=== PATIENT | male | born 1950 | race Caucasian/White ===

== ENCOUNTER 2021-10-06 08:53 | Outpatient (REF) | payer MEDICARE, SELFPAY ==
[2021-10-06 09:26] LABS: MANUAL DIFF FLAG NO
[2021-10-06 10:07] LABS: Basophils Percent Auto 0.6 % (0-2); Eosinophils Absolute Auto 0.4 X10*3/uL (0.0-0.4); Eosinophils Percent Auto 6.1 % (0-4); Hematocrit 46.6 % (42.0-52.0); Hemoglobin 15.9 g/dl (14.0-18.0); Imm Gran Abs Auto 0.03 X10*3/uL (0.00-0.03); Imm Gran Pct Auto 0.4 % (0.0-0.4); Lymphocytes Absolute Auto 1.5 X10*3/uL (1.2-4.9); Lymphocytes Percent Auto 22.7 % (20-40); Mean Corpuscular HGB Conc 34.1 g/dl (31.0-36.0); Mean Corpuscular Volume 99.8 fL (80.0-98.0); Mean Platelet Volume 9.2 fL (9.4-12.4); Monocytes Absolute Auto 0.6 X10*3/uL (0.1-1.2); Monocytes Percent Auto 8.8 % (2-11); Neutrophils Absolute Auto 4.1 x10*3/uL (2.0-8.3); Neutrophils Percent Auto 61.4 % (45-73); Platelet Count 243 X10*3/uL (160-400); Red Blood Count 4.67 X10*6/uL (4.60-5.80); Red Cell Distribution Width 13.2 % (11.0-16.0); White Blood Count 6.7 X10*3/uL (4.8-10.8)
[2021-10-06 11:10] LABS: Alanine Aminotransferase 20 U/L (0-40); Albumin Level 4.2 g/dL (3.5-5.0); Alkaline Phosphatase 72 U/L (39-117); Anion Gap 14 (12-20); Aspartate Amino Transferase 22 U/L (5-37); Blood Urea Nitrogen 9 mg/dL (9-16); Carbon Dioxide 25 mmol/L (22-29); Chloride 106 mmol/L (96-108); Cholesterol 184 mg/dL; Estimated Glomerular Filt Rate > 60; Glucose Random 109 mg/dL (60-115); HDL Cholesterol 40 mg/dL; LDL Cholesterol Calculated 107 mg/dl; Potassium 5.6 mmol/L (3.3-5.1); Sodium 139 mmol/L (135-145); Total Protein 7.3 g/dL (6.5-8.0); Triglycerides 188 mg/dL
[2021-10-06 11:14] LABS: Thyroid Stimulating Hormone 1.25 uIU/mL (0.32-4.0)
[2021-10-06 11:21] LABS: Vitamin B12 593 pg/mL (200-900)
[2021-10-06 11:46] LABS: Prostate Specific Antigen Scr 2.44 ng/mL (<0.05-4.0)
== END 2021-10-06 08:54 | disposition home or self-care (01) ==
LOC: HO.LAB 08:53
PROVIDERS: PCP Internal Medicine; Visit Provider Internal Medicine
DX: E78.00 Pure hypercholesterolemia, unspecified (principal); Z12.5 Encounter for screening for malignant neoplasm of prostate
CPT/HCPCS: 36415; 80053; 80061; 82607; 82746; 84153; 84439; 84443; 85025

== ENCOUNTER 2021-10-13 11:25 | Outpatient (REF) | payer MEDICARE, SELFPAY ==
[2021-10-13 12:49] LABS: Anion Gap 14 (12-20); Blood Urea Nitrogen 10 mg/dL (9-16); Calcium 9.7 mg/dL (8.4-10.2); Carbon Dioxide 24 mmol/L (22-29); Chloride 105 mmol/L (96-108); Estimated Glomerular Filt Rate > 60; Glucose Random 94 mg/dL (60-115); Potassium 4.4 mmol/L (3.3-5.1); Sodium 139 mmol/L (135-145)
== END 2021-10-13 11:26 | disposition home or self-care (01) ==
LOC: HO.LAB 11:25
PROVIDERS: PCP Internal Medicine; Visit Provider Internal Medicine
DX: E87.5 Hyperkalemia (principal)
CPT/HCPCS: 36415; 80048

== ENCOUNTER → 2021-12-08 13:22 | Outpatient (BNVA) | payer MEDICARE, SELFPAY | PROVIDERS: PCP Internal Medicine; Visit Provider Nurse Practitioner Family | DX: M47.816 Spondylosis without myelopathy or radiculopathy, lumbar region (principal); M96.1 Postlaminectomy syndrome, not elsewhere classified; M53.3 Sacrococcygeal disorders, not elsewhere classified; M48.00 Spinal stenosis, site unspecified | CPT/HCPCS: 99202 ==

== ENCOUNTER 2021-12-27 12:33 | Outpatient (REF) | payer MEDICARE, SELFPAY ==
--- NOTE | 2021-12-27 14:25 | MHC.AU.ATI ---
Adult Audiological Evaluation- Tinnitus Date of Visit: 12/27/21 Reason for Appointment: Patient has been experiencing bothersome, constant, high-pitched tinnitus for the last several years. He has noticed some hearing difficulty, but does not feel it is interfering with his daily communication. 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 History: No Medical History: Medical History: High Blood Pressure, Tobacco Use Otoscopy: Right Ear: Unremarkable Left Ear: Unremarkable Tympanometry: Tympanometry performed due to: To assess integrity of the middle ear system Right Ear: Normal Middle Ear System (Type A) Left Ear: Reduced Middle Ear Compliance (Type As) Hearing Evaluation: Transducer(s) Used: Insert Earphones Method: Conventional Audiometry Stimuli Used: Pure Tones Right Ear: Description of Hearing: Normal at 250-500 Hz, then steeply sloping to profound sensorineural hearing loss Left Ear: Description of Hearing: Normal at 250-500 Hz, then steeply sloping to profound sensorineural hearing loss Speech Recognition Threshold (SRT): Method Used: Recorded Lists Stimuli Used: Spondee Words Right Ear: 25 dBHL Left Ear: 25 dBHL Word Discrimination: Method: Recorded Lists Word Lists Used:: W-22 Right Ear: 84% at 70 dBHL Left Ear: 88% at 70 dBHL Most Comfortable Level (MCL): Right Ear: 70 dBHL Left Ear: 70 dBHL Tinnitus Assessment: Tinnitus Match- Pitch/Frequency: Around 6000 Hz Recommendations: Audiological re-evaluation in one year. Patient does not feel he is ready for hearing aids at this time. Discussed tinnitus management strategies, including use of masking sounds (noise machines, fans, TV, radio, etc). Cognitive Behavior Therapy (CBT) may also be beneficial. Diagnosis: Primary Diagnosis: H90.3 Bilateral Sensorineural Hearing Loss Secondary Diagnosis: H93.13 Tinnitus, Bilateral Signature: Provider: Tino Wilson, [facility] [place]
== END 2021-12-27 12:34 | disposition home or self-care (01) ==
LOC: HO.SH 12:33
PROVIDERS: Visit Provider Internal Medicine
DX: H90.3 Sensorineural hearing loss, bilateral (principal); H93.13 Tinnitus, bilateral
CPT/HCPCS: 92557; 92567

== ENCOUNTER → 2022-01-05 13:19 | Outpatient (BNVA) | payer MEDICARE, SELFPAY | PROVIDERS: PCP Internal Medicine; Visit Provider Nurse Practitioner Family | DX: M47.816 Spondylosis without myelopathy or radiculopathy, lumbar region (principal); M96.1 Postlaminectomy syndrome, not elsewhere classified; M53.3 Sacrococcygeal disorders, not elsewhere classified; M48.00 Spinal stenosis, site unspecified | CPT/HCPCS: 99212 ==

== ENCOUNTER 2023-04-14 15:13 | Outpatient (AMB) | payer MEDICARE, SELFPAY ==
[2023-04-14 15:26] VITALS: BP 165/100; PULSE 65; O2SAT 97; BMI 23.4
--- NOTE | 2023-04-14 15:26 | A.OFFPC_ITS ---
Vital Signs 04/14/23 15:26 Height 5 ft 10 in Weight 163 lb BMI 23.4 BP 165/100 H Blood Pressure Location Lt brachial Position Sitting Pulse 65 Pulse Source Pulse Oximeter Pulse Oximetry (%) 97 Oxygen Delivery Method Room Air Intake Visit Reasons: Follow up Hypertension Brazer Controlled Atmospheric Furnace: Not Required per policy Accompanied by: Self / Same As Patient Allergies No Known Allergies [No Known Allergies*] Allergy (Verified 04/14/23 15:26) Medication List - Last Reconciled 04/14/23 by Kenji Melvin MD hydrocodone-acetaminophen 5-300 mg 1 tab PO BID PRN lisinopril 30 mg PO DAILY 90 days rosuvastatin 20 mg PO DAILY 90 days sildenafil (Viagra) 50 mg PO DAILY PRN tizanidine 2 mg PO Q8H PRN 14 days Tobacco use date assessed: 07/11/22 Fall risk assessment: No Falls in past year Last assessed Fall Risk: 04/14/23 Dental Screening Dental Screen Date: 04/14/23 Did you have a dental visit in the last 12 months?: Yes Did you have a dental problem in the last 6 months where you did not have access to dental care?: No Was dental information given to patient?: Patient has dentist HPI Follow up Hypertension HPI Details 72-year-old male smoker with a history o f failed back syndrome on narcotic pain medication hypertension hypercholesterolemia impaired glucose tolerance coming in for follow-up. Last seen in August 2022 patient was advised blood work. Patient is due for colonoscopy [facility] Medical History Tobacco abuse Hypercholesterolemia Hypertension Surgical History History of tonsillectomy History of hemorrhoidectomy Spinal stenosis Social History Housing: House Alcohol intake: current Alcohol intake frequency: does not drink Patient Tobacco Use Status: Current everyday Tobacco user Tobacco use type: Cigarette Cigarettes Per Day: 4 e-Cigarette/Vaping Use: Never Used Second Hand Smoke Exposure: Yes service: No Current occupational status: retired Cognitive needs: Yes (cane) Hearing needs: No Vision needs: Yes Questionnaire PHQ-9 Over the last 2 weeks, how often have you been bothered by any of the following problems? 1. Little interest or pleasure in doing things: not at all 2. Feeling down, depressed, or hopeless: not at all 3. Trouble falling or staying asleep, or sleeping too much: not at all 4. Feeling tired or having little energy: not at all 5. Poor appetite or overeating: not at all 6. Feeling bad about yourself - or that you are a failure or have let yourself or your family down: not at all 7. Trouble concentrating on things, such as reading the newspaper or watching television: not at all 8. Moving or speaking so slowly that other people could have noticed. Or the opposite - being so fidgety or restless that you have been moving around a lot more than usual: not at all 9. Thoughts that you would be better off or of hurting yourself in some way: not at all Total score: 0 Depression Screening Interpretation: Negative Depression Screening Done: Yes Source: Developed by Drs. Ramakrishna Blanc, Ramona Pena, Arvind Saldana and colleagues, with an educational dali from [employer]. Thrive Questionnaire Date Thrive assessed: 07/11/22 AUDIT C Alcohol Use Questionnaire (AUDIT-C) 1. How often do you have a drink containing alcohol?: Never 3. How often do you have six or more drinks on one occasion?: Never Total Score: 0 CALLY-7 AMB Questionnaire CALLY-7 Date CALLY - 7 assessed: 07/11/22 Source: Developed by Drs. Ramakrishna Blanc, Ramona Pena, Arvind Saldana and colleagues, with an educational dali from [employer]. Physical exam (Primary Care) Vital Signs: Oxygen Delivery Method Room Air 04/14/23 15:26 BMI result Body Mass Index 23.4 Tobacco/Smoking Status: Tobacco use Status Tobacco use date assessed 07/11/22 09/20/22 11:47 Patient Tobacco Use Status Current everyday Tobacco 09/20/22 11:47 Tobacco use type Cigarette 09/20/22 11:47 e-Cigarette/Vaping Use Never Used 09/20/22 11:47 Depression Screening Interpretation: Negative Thrive Assessment: Date of Thrive Assessment Date Thrive assessed 07/11/22 09/20/22 11:47 Const General: alert; No acute distress Eyes Conjunctivae: conjunctivae normal Resp Auscultation: clear to auscultation bilaterally Cardio Rate: regular rate Rhythm: regular rhythm GI Inspection: Yes normal to inspection Extrem General: Yes normal to inspection and No edema Assessment and Plan Assessment & Plan (1) Colonoscopy refused: Code(s): Z53.20 - Procedure and treatment not carried out because of patient's decision for unspecified reasons (2) Failed back syndrome: Code(s): M96.1 - Postlaminectomy syndrome, not elsewhere classified Plan: Narcotic pain meds: Is being prescribed with the understanding that these medications are potentially addictive and should be used only when absolutely necessary and must always be secured. Any remaining pills should be safely disposed off appropriately. Patient is advised that narcotics can impaired judgment and one should not drive or operate heavy machinery while taking these medications. Never share these medications with anybody and do not leave them unattended. They will not be replaced under any circumstances. (3) Impaired fasting blood sugar: Code(s): R73.01 - Impaired fasting glucose Plan: Decrease the amount of carbohydrate intake, pasta, bread, rice and potatoes are all sugar and that is aside from all the sweet stuff, remember that fruits are good but they are Sweet also. (4) Hypertension: Comment: BP at home is good 08/2022 Code(s): I10 - Essential (primary) hypertension Plan: Avoid fried foods, chicken skin, eggs, butter margarine, pastries and meat. Patient is on lisinopril 30 mg once a day. PAtient is checking BP at home and BP has been good (5) Hypercholesterolemia: Code(s): E78.00 - Pure hypercholesterolemia, unspecified Plan: Avoid fried foods, chicken skin, eggs, butter margarine, pastries and meat. Be it pork or beef they have a lot of cholesterol patient on rosuvastatin 20 mg once a day LDL goal of less than 130 and triglyceride of less than 150. Reminded about blood work (6) Tobacco abuse: Comment: still smoking! (04/2023) Code(s): Z72.0 - Tobacco use Plan: advised to stop smoking! Coding Level of Care Code Est Pt Level 4 (11209) Diagnoses Colonoscopy refused Z53.20 Failed back syndrome M96.1 Impaired fasting blood sugar R73.01 Hypertension I10 Hypercholesterolemia E78.00 Tobacco abuse Z72.0
== END 2023-04-14 15:42 | disposition home or self-care (01) ==
PROVIDERS: PCP Internal Medicine; Visit Provider Internal Medicine
DX: Z53.20 Procedure and treatment not carried out because of patient's decision for unspecified reasons (principal); M96.1 Postlaminectomy syndrome, not elsewhere classified; R73.01 Impaired fasting glucose; I10 Essential (primary) hypertension; E78.00 Pure hypercholesterolemia, unspecified; Z72.0 Tobacco use
CPT/HCPCS: 99214

== ENCOUNTER 2023-06-16 10:14 | Outpatient (REF) | payer MEDICARE, SELFPAY ==
[2023-06-16 10:25] LABS: MANUAL DIFF FLAG NO
[2023-06-16 10:55] LABS: Basophils Percent Auto 0.7 % (0-2); Eosinophils Absolute Auto 0.3 X10*3/uL (0.0-0.4); Eosinophils Percent Auto 4.8 % (0-4); Hematocrit 48.6 % (42.0-52.0); Imm Gran Abs Auto 0.01 X10*3/uL (0.00-0.03); Imm Gran Pct Auto 0.2 % (0.0-0.4); Lymphocytes Absolute Auto 1.5 X10*3/uL (1.2-4.9); Lymphocytes Percent Auto 25.5 % (20-40); Mean Corpuscular Hemoglobin 34.6 pg (27.0-33.0); Mean Platelet Volume 8.9 fL (9.4-12.4); Monocytes Absolute Auto 0.5 X10*3/uL (0.1-1.2); Monocytes Percent Auto 8.6 % (2-11); Neutrophils Absolute Auto 3.5 x10*3/uL (2.0-8.3); Neutrophils Percent Auto 60.2 % (45-73); Platelet Count 181 X10*3/uL (160-400); Red Blood Count 4.91 X10*6/uL (4.60-5.80); Red Cell Distribution Width 12.9 % (11.0-16.0); White Blood Count 5.8 X10*3/uL (4.8-10.8)
[2023-06-16 11:30] LABS: Alanine Aminotransferase 25 U/L (0-40); Albumin Level 4.3 g/dL (3.5-5.0); Alkaline Phosphatase 88 U/L (39-117); Anion Gap 14 (12-20); Aspartate Amino Transferase 37 U/L (5-37); Bilirubin Total 1.4 mg/dL (0.0-1.0); Blood Urea Nitrogen 12 mg/dL (9-16); Calcium 9.7 mg/dL (8.4-10.2); Carbon Dioxide 29 mmol/L (22-29); Chloride 104 mmol/L (96-108); Cholesterol 184 mg/dL (<200); Estimated Glomerular Filt Rate > 60; Glucose Random 108 mg/dL (60-115); HDL Cholesterol 65 mg/dL (>40); LDL Cholesterol Calculated 92 mg/dL (<100); Potassium 5.1 mmol/L (3.3-5.1); Sodium 142 mmol/L (135-145); Total Protein 7.5 g/dL (6.5-8.0); Triglycerides 138 mg/dL (<150)
[2023-06-16 11:34] LABS: Free T4 (Free Thyroxine) 0.88 ng/dL (0.71-1.85); Thyroid Stimulating Hormone 1.61 uIU/mL (0.32-4.0)
[2023-06-16 11:44] LABS: Folate 6.2 ng/mL (> or = 4.0); Prostate Specific Antigen Scr 2.16 ng/mL (<0.05-4.0); Vitamin B12 348 pg/mL (200-900)
== END 2023-06-16 10:15 | disposition home or self-care (01) ==
LOC: HO.LAB 10:14
PROVIDERS: PCP Internal Medicine; Visit Provider Internal Medicine
DX: E78.00 Pure hypercholesterolemia, unspecified (principal); I10 Essential (primary) hypertension; Z12.5 Encounter for screening for malignant neoplasm of prostate
CPT/HCPCS: 36415; 80053; 80061; 82607; 82746; 84153; 84439; 84443; 85025

== ENCOUNTER 2023-07-17 14:54 | Outpatient (AMB) | payer MEDICARE, SELFPAY ==
[2023-07-17 14:55] VITALS: BP 158/90; PULSE 83; O2SAT 97; BMI 24.8
--- NOTE | 2023-07-17 14:55 | MHC.PC.OV ---
Vital Signs 07/17/23 14:55 Height 5 ft 10 in Weight 173 lb 0.6 oz BMI 24.8 BP 158/90 H Blood Pressure Location Lt brachial Position Sitting Pulse 83 Pulse Source Pulse Oximeter Pulse Oximetry (%) 97 Oxygen Delivery Method Room Air Intake Visit Reasons: Failed back syndrome, Tobacco abuse Supervisor [employer] Required: No Allergies No Known Allergies [No Known Allergies*] Allergy (Verified 07/17/23 14:55) Medication List - Last Reconciled 07/17/23 by Kenji Melvin MD hydrocodone-acetaminophen 5-300 mg 1 tab PO BID PRN lisinopril 30 mg PO DAILY 90 days sildenafil (Viagra) 50 mg PO DAILY PRN Tobacco use date assessed: 07/17/23 Fall risk assessment: No Falls in past year Last assessed Fall Risk: 07/17/23 Dental Screening Dental Screen Date: 07/17/23 HPI Failed back syndrome, Tobacco abuse HPI Details 72-year-old male smoker with a history of failed back syndrome on narcotic pain medication coming in for refill. Has a history of impaired glucose tolerance hypertension hypercholesterolemia. Patient declined colonoscopy the last time [facility] Medical History Tobacco abuse Hypercholesterolemia Hypertension Surgical History History of tonsillectomy History of hemorrhoidectomy Spinal stenosis Social History Housing: House Alcohol intake: current Alcohol intake frequency: does not drink Patient Tobacco Use Status: Current everyday Tobacco user Tobacco use type: Cigarette Cigarettes Per Day: 4 e-Cigarette/Vaping Use: Never Used Second Hand Smoke Exposure: Yes service: No Current occupational status: retired Cognitive needs: Yes (cane) Hearing needs: No Vision needs: Yes Questionnaire PHQ-9 Over the last 2 weeks, how often have you been bothered by any of the following problems? 1. Little interest or pleasure in doing things: not at all 2. Feeling down, depressed, or hopeless: not at all 3. Trouble falling or staying asleep, or sleeping too much: not at all 4. Feeling tired or having little energy: not at all 5. Poor appetite or overeating: not at all 6. Feeling bad about yourself - or that you are a failure or have let yourself or your family down: not at all 7. Trouble concentrating on things, such as reading the newspaper or watching television: not at all 8. Moving or speaking so slowly that other people could have noticed. Or the opposite - being so fidgety or restless that you have been moving around a lot more than usual: not at all 9. Thoughts that you would be better off or of hurting yourself in some way: not at all Total score: 0 Depression Screening Interpretation: Negative Depression Screening Done: Yes Source: Developed by Drs. Ramakrishna Blanc, Ramona Pena, Arvind Saldana and colleagues, with an educational dali from [employer]. Thrive Questionnaire Date Thrive assessed: 07/17/23 AUDIT C Alcohol Use Questionnaire (AUDIT-C) 1. How often do you have a drink containing alcohol?: Never 3. How often do you have six or more drinks on one occasion?: Never Total Score: 0 CALLY-7 AMB Questionnaire CALLY-7 Date CALLY - 7 assessed: 07/17/23 Feeling nervous, anxious, or on edge: 0 = Not at all Not being able to stop or control worryin = Not at all Worrying too much about different things: 0 = Not at all Trouble relaxin = Not at all Being so restless that it is hard to sit still: 0 = Not at all Becoming easily annoyed or irritable: 0 = Not at all Feeling afraid as if something awful might happen: 0 = Not at all Total CALLY-7 score (0-4 normal; 5-9 mild; 10-14 moderate; 15-21 severe): 0 Source: Developed by Drs. Ramakrishna Blanc, Ramona Pena, Arvind Saldana and colleagues, with an educational dali from [employer]. Physical exam (Primary Care) Vital Signs: Last Vital Signs Pulse 83 07/17/23 14:55 BP 158/90 H 07/17/23 14:55 Pulse Ox 97 07/17/23 14:55 Oxygen Delivery Method Room Air 07/17/23 14:55 BMI result Body Mass Index 24.8 Tobacco/Smoking Status: Tobacco use Status Tobacco use date assessed 07/17/23 07/17/23 14:56 Patient Tobacco Use Status Current everyday Tobacco 07/17/23 14:56 Tobacco use type Cigarette 07/17/23 14:56 e-Cigarette/Vaping Use Never Used 07/17/23 14:56 PHQ-9: PHQ-9 Score PHQ-9: Total score 0 07/17/23 15:13 Depression Screening Interpretation: Negative Thrive Assessment: Date of Thrive Assessment Date Thrive assessed 07/17/23 07/17/23 14:56 Const General: alert; No acute distress Eyes Conjunctivae: conjunctivae normal Resp Auscultation: clear to auscultation bilaterally Cardio Rate: regular rate Rhythm: regular rhythm GI Inspection: Yes normal to inspection Extrem General: Yes normal to inspection and No edema Assessment and Plan Assessment & Plan (1) Colonoscopy refused: Code(s): Z53.20 - Procedure and treatment not carried out because of patient's decision for unspecified reasons Plan: declined (2) Failed back syndrome: Code(s): M96.1 - Postlaminectomy syndrome, not elsewhere classified Plan: Narcotic pain meds: Is being prescribed with the understanding that these medications are potentially addictive and should be used only when absolutely necessary and must always be secured. Any remaining pills should be safely disposed off appropriately. Patient is advised that narcotics can impaired judgment and one should not drive or operate heavy machinery while taking these medications. Never share these medications with anybody and do not leave them unattended. They will not be replaced under any circumstances. (3) Impaired fasting blood sugar: Code(s): R73.01 - Impaired fasting glucose Plan: Decrease the amount of carbohydrate intake, pasta, bread, rice and potatoes are all sugar and that is aside from all the sweet stuff, remember that fruits are good but they are Sweet also. (4) Hypertension: Comment: BP at home is good 08/2022 Code(s): I10 - Essential (primary) hypertension Plan: Continue with blood pressure medication. Decrease salt intake and exercise patient has had monitoring the blood pressure is good. Lisinopril 30 mg once a day BP at home 121/67,137/72, 139/72,105/64 (5) Hypercholesterolemia: Code(s): E78.00 - Pure hypercholesterolemia, unspecified Plan: Avoid fried foods, chicken skin, eggs, butter margarine, pastries and meat. Be it pork or beef they have a lot of cholesterol presently on rosuvastatin 20 mg once a day LDL goal of less than 130 (6) Tobacco abuse: Comment: still smoking! (04/2023) Code(s): Z72.0 - Tobacco use Plan: Patient is strongly advised to stop smoking!- stopped 6 weeks. Coding Level of Care Code Est Pt Level 4 (36529) Diagnoses Colonoscopy refused Z53.20 Failed back syndrome M96.1 Impaired fasting blood sugar R73.01 Hypertension I10 Hypercholesterolemia E78.00 Tobacco abuse Z72.0
== END 2023-07-17 15:49 | disposition home or self-care (01) ==
PROVIDERS: PCP Internal Medicine; Visit Provider Internal Medicine
DX: Z53.20 Procedure and treatment not carried out because of patient's decision for unspecified reasons (principal); M96.1 Postlaminectomy syndrome, not elsewhere classified; R73.01 Impaired fasting glucose; I10 Essential (primary) hypertension; E78.00 Pure hypercholesterolemia, unspecified; Z72.0 Tobacco use
CPT/HCPCS: 99214

== ENCOUNTER 2023-10-16 14:32 | Outpatient (AMB) | payer MEDICARE, SELFPAY ==
[2023-10-16 14:37] VITALS: BP 162/90; PULSE 82; O2SAT 97; BMI 25.0
--- NOTE | 2023-10-16 14:37 | A.OFFPC_ITS ---
Vital Signs 10/16/23 14:37 Height 5 ft 10 in Weight 174 lb BMI 25.0 BP 162/90 H Blood Pressure Location Lt brachial Position Sitting Pulse 82 Pulse Source Pulse Oximeter Pulse Oximetry (%) 97 Oxygen Delivery Method Room Air Intake Visit Reasons: IGT, Credit Assessment Analyst Required: No Allergies No Known Allergies [No Known Allergies*] Allergy (Verified 10/16/23 14:37) Tobacco use date assessed: 10/16/23 Fall risk assessment: No Falls in past year Last assessed Fall Risk: 10/16/23 Dental Screening Dental Screen Date: 07/17/23 HPI IGT, HPI Details 73-year-old male smoker with a history o f failed back syndrome on narcotic pain medication coming in for follow-up. Has impaired glucose tolerance hypertension hypercholesterolemia coming in for follow-up. Last seen in July 2023.PAtient checks the BP at home 135/85- good at home [facility] Medical History Tobacco abuse Hypercholesterolemia Hypertension Surgical History History of tonsillectomy History of hemorrhoidectomy Spinal stenosis Social History Housing: House Alcohol intake: current Alcohol intake frequency: does not drink Patient Tobacco Use Status: Current everyday Tobacco user Tobacco use type: Cigarette Cigarettes Per Day: 4 e-Cigarette/Vaping Use: Never Used Second Hand Smoke Exposure: Yes service: No Current occupational status: retired Cognitive needs: Yes (cane) Hearing needs: No Vision needs: Yes Questionnaire Thrive Questionnaire Date Thrive assessed: 10/16/23 I am a: Patient What is your living situation today?: I have a steady place to live Within the past 12 months, did the food you bought not last and you didn't have the money to get more?: Never true Within the past 12 months, did you worry whether your food would run out before you got money to buy more?: Never true Do you have trouble paying for medicines?: No Do you have trouble getting transportation to medical appointments?: No Do you have trouble paying your heating and electricity bill?: No Do you have trouble taking care of your child, family member or friend?: No Do you have trouble with day-to-day activities such as bathing, preparing meals, shopping, managing finances, etc.?: No Are you currently unemployed and looking for a job?: No Are you interested in more education?: No Please select the resources that you would like help with: None Currently or been in a relationship where the following occur: no concerns reported THRIVE Score: 0 AUDIT C Alcohol Use Questionnaire (AUDIT-C) 1. How often do you have a drink containing alcohol?: Never 3. How often do you have six or more drinks on one occasion?: Never Total Score: 0 CALLY-7 AMB Questionnaire CALLY-7 Date CALLY - 7 assessed: 07/17/23 Source: Developed by Drs. Ramakrishna Blanc, Ramona Pena, Arvind Saldana and colleagues, with an educational dali from [employer]. Physical exam (Primary Care) Vital Signs: Last Vital Signs Pulse 82 10/16/23 14:37 BP 162/90 H 10/16/23 14:37 Pulse Ox 97 10/16/23 14:37 Oxygen Delivery Method Room Air 10/16/23 14:37 BMI result Body Mass Index 25.0 Tobacco/Smoking Status: Tobacco use Status Tobacco use date assessed 10/16/23 10/16/23 14:38 Patient Tobacco Use Status Current everyday Tobacco 10/16/23 14:38 Tobacco use type Cigarette 10/16/23 14:38 e-Cigarette/Vaping Use Never Used 10/16/23 14:38 Thrive Assessment: Date of Thrive Assessment Date Thrive assessed 10/16/23 10/16/23 14:38 Currently or been in a relationship where the following occur: no concerns reported Const General: alert; No acute distress Eyes Conjunctivae: conjunctivae normal Resp Auscultation: clear to auscultation bilaterally Cardio Rate: regular rate Rhythm: regular rhythm GI Inspection: Yes normal to inspection Extrem General: Yes normal to inspection and No edema Immunizations tetanus-diphtheria toxoids-Td 2 Lf unit-2 Lf unit/0.5 mL IM suspension Performing Provider: Kenji Melvin MD [place] [facility] [place] Administered by: SHON Jansen on 10/16/23 15:18 Dose Route Admin Location Dispensed Lot Number Expiration Date NDC Clinical Account Manager 0.5 mL IM Left Deltoid 0.5 mL [id number] 08/12/24 [address]-5 [employer] VIS Given Date VIS Provided VIS Publication Date 10/16/23 Single Vaccine 21 Eligibility Eligibility Date Funding Source Not [facility] Eligible 10/16/23 State funds Assessment and Plan Assessment & Plan (1) Tobacco abuse: Comment: still smoking! (04/2023) Code(s): Z72.0 - Tobacco use Plan: Patient is strongly advised to stop smoking! (2) Failed back syndrome: Code(s): M96.1 - Postlaminectomy syndrome, not elsewhere classified Plan: Narcotic pain meds: Is being prescribed with the understanding that these m edications are potentially addictive and should be used only when absolutely necessary and must always be secured. Any remaining pills should be safely disposed off appropriately. Patient is advised that narcotics can impaired judgment and one should not drive or operate heavy machinery while taking these medications. Never share these medications with anybody and do not leave them unattended. They will not be replaced under any circumstances. (3) Hypertension: Comment: BP at home is good 08/2022 Code(s): I10 - Essential (primary) hypertension Plan: Continue with blood pressure medication. Decrease salt intake and exercise on lisinopril 30 mg once a (4) Hypercholesterolemia: Code(s): E78.00 - Pure hypercholesterolemia, unspecified Plan: Avoid fried foods, chicken skin, eggs, butter margarine, pastries and meat. Be it pork or beef they have a lot of cholesterol LDL goal of less than 130 and triglyceride of less than 150 June blood work is good Orders: Orders Td State Immunization Today Z23 - Encounter for immunization Medications: New tetanus-diphtheria toxoids-Td 0.5 mL IM ONCE 0.5 mL 0RF Z23 - Encounter for immunization Coding Level of Care Code Est Pt Level 4 (71985) Diagnoses Tobacco abuse Z72.0 Failed back syndrome M96.1 Hypertension I10 Hypercholesterolemia E78.00
== END 2023-10-16 15:25 | disposition home or self-care (01) ==
PROVIDERS: PCP Internal Medicine; Visit Provider Internal Medicine
DX: Z72.0 Tobacco use (principal); M96.1 Postlaminectomy syndrome, not elsewhere classified; I10 Essential (primary) hypertension; E78.00 Pure hypercholesterolemia, unspecified; Z23 Encounter for immunization
CPT/HCPCS: 90471; 90714; 99214

== ENCOUNTER 2024-01-01 13:10 | Emergency (ER) | payer MEDICARE, SELFPAY ==
--- NOTE | ~2024-01-01 | CT_ITS ---
EXAMINATION: CT PELVIS WITH CONTRAST CLINICAL INFORMATION: Peritoneal abscess COMPARISON: 11/22/2018 CT scan TECHNIQUE: Helical scanning was performed with submillimeter collimation through the pelvis with the use of oral contrast and during bolus intravenous injection of 85 mL of Omnipaque 350 intravenous contrast. Sagittal and coronal multiplanar 2-D reconstructions were obtained. This CT examination was performed using dose optimization techniques as appropriate, variously including the following: *Automated exposure control *Adjustment of mA and/or kV according to patient size (this includes techniques or standardized protocols for targeted exams where dose is matched to indication/reason for exam; i.e. extremities or head) *Use of iterative reconstruction technique DLP: 330 mGy-cm FINDINGS: PELVIS: Scattered colonic diverticulosis. No rectal wall thickening or perirectal inflammatory change Although decompressed there is concentric bladder wall thickening that I cannot exclude a component of chronic bladder outflow obstruction. Prostate and seminal vesicles are unremarkable. The main finding of note is abnormal soft tissue perineum just posterior to the scrotum. There is a low-attenuation fluid collection. No soft tissue measuring approximately 3.5 x 1.5 x 3.2 cm in size. There is surrounding perineal skin thickening. I do not appreciate any soft tissue gas with this. I do not appreciate any obvious extension to the anal sphincter. Small incidental scrotal hydrocele seen bilaterally. OSSEOUS STRUCTURES: Degenerative changes in the lower lumbar spine and hips. CT/CT pelvis w IV con IMPRESSION: Abnormal soft tissue in the perineum just posterior to the scrotum. There is a low-attenuation fluid collection measuring 3.5 x 1.5 x 3.2 cm in size consistent with a small superficial perineal abscess and associated overlying skin thickening. I do not appreciate any obvious extension to the anal sphincter.
[2024-01-01 13:31] VITALS: BP 175/89; PULSE 91; RESP 16; TEMP 37.4; O2SAT 99; BMI 25.1
--- NOTE | 2024-01-01 13:35 | ED.GENADULT ---
HPI - General Adult General Chief complaint: Skin/Abscess/Foreign Body Stated complaint: growth priviate area Time Seen by Provider: 01/01/24 19:43 Source: patient Mode of arrival: ambulatory Limitations: no limitations History of Present Illness ED Provider: jurgen PEREZ narrative: Patient's history of perineal abscess in the past nondiabetic noticed small swelling in the perineal area 4 days ago got worse in last 24 hours no fever no chills no scrotal swelling no difficulty in defecation Related Data Previous Rx's ?Medication ?Instructions ?Recorded lisinopril 30 mg tablet 30 mg PO DAILY 90 days #90 tabs 05/17/23 sildenafil 50 mg tablet (Viagra) 50 mg PO DAILY PRN sexual activity 09/13/23 #14 tabs hydrocodone 5 mg-acetaminophen 300 1 tab PO BID PRN pain #60 tabs 12/28/23 mg tablet amoxicillin 875 mg-potassium 1 tab PO BID #20 tabs 01/01/24 clavulanate 125 mg tablet doxycycline hyclate 100 mg tablet 100 mg PO BID #20 tabs 01/01/24 Allergies Allergy/AdvReac Type Severity Reaction Status Date / Time No Known Allergies Allergy Verified 01/01/24 13:35 [No Known Allergies*] Review of Systems Review of Systems: Yes all other systems are reviewed and are negative PMFSH Past Medical History Medical History Tobacco abuse Hypercholesterolemia Hypertension Surgical History History of tonsillectomy History of hemorrhoidectomy Spinal stenosis Social History Social History Housing: House Alcohol intake: current Alcohol intake frequency: does not drink Patient Tobacco Use Status: Current everyday Tobacco user Tobacco use type: Cigarette Cigarettes Per Day: 4 Smoked in Last 30 Days: No e-Cigarette/Vaping Use: Never Used Second Hand Smoke Exposure: Yes Use of substances other than those prescribed or required for medical reasons: No Advance Directives: Yes Advance Directives on File: Yes Advance Directives Date on File: 02/23/22 Do you have a plan to hurt others: No Plan service: No Current occupational status: retired Cognitive needs: Yes (cane) Hearing needs: No Vision needs: Yes Physical Exam ED Vital Signs: Vital Signs - 24 hr 01/01/24 13:31 01/01/24 17:25 01/01/24 20:25 Temperature 99.4 F 99.5 F 100.1 F Pulse Rate 91 87 89 Respiratory Rate 16 16 16 Blood Pressure 175/89 H 189/95 H 165/76 H Pulse Oximetry 99 97 98 Oxygen Delivery Method Room Air Room Air Room Air 01/01/24 22:51 01/01/24 22:58 Temperature 99.5 F 99.5 F Pulse Rate 85 85 Respiratory Rate 16 16 Blood Pressure 160/84 H 160/84 H Pulse Oximetry 97 97 Oxygen Delivery Method Room Air Room Air BMI result Body Mass Index 25.1 Appearance: Alert. Oriented X3. No acute distress. Eyes: No pallor or icterus ENT: Pharynx normal. Oral Mucosa moist Neck: Normal inspection. Neck supple. CVS: Normal heart rate and rhythm. Pulses normal. Respiratory: No respiratory distress. Equal air entry bilateral, no wheezing/rales/rhonchi Abdomen: Soft and nontender. Bowel sounds are present, Skin: Skin warm and dry. Normal skin color. Normal skin turgor. Extremities: No lower extremity edema. No calf tenderness perinium 4 x 4 cm abscess in Perineum fluctuant scrotum normal Neuro: Oriented X 3. No motor deficit. No sensory deficit.No cerebellar signs , cranial nerves II-XII intact Course Course Course Narrative: RME performed by Kathleen Marion PA-C. Patient is a 73 year old assigned male at presenting to the emergency department with a growth. Patient states he has a growth between his scrotum and buttock. Patient states that previously he has had it lanced and drained but today the urgent care is concerned it is infected. Detailed physical exam and review of systems are deferred to the on site soil evaluator. Labs ordered. Patient placed back in the waiting room pending room availability and results. Medications Administered Discontinued Medications Generic Name Dose Route Start Last Admin Trade Name Freq PRN Reason Stop Dose Admin Amoxicillin/Clavulanate Potassium 875 mg 01/01/24 22:48 01/01/24 22:55 Amoxicillin/Potassium Clav 875 Mg Tablet PO 01/01/24 22:49 875 mg ONCE ONE Administration Doxycycline Monohydrate 100 mg 01/01/24 22:48 01/01/24 22:55 Doxycycline Monohydrate 100 Mg Capsule PO 01/01/24 22:49 100 mg ONCE ONE Administration Iohexol 100 ml 01/01/24 20:02 01/01/24 20:02 Iohexol 350 Mg/Ml 100 Ml Infus..Btl IV 01/01/24 20:03 85 ml ONCE ONE Administration Lidocaine HCl 5 ml 01/01/24 21:35 01/01/24 22:36 Lidocaine Hcl 1 % Mpf 5 Ml Vial INFILTRATI 01/01/24 21:36 5 ml ONCE ONE Administration Procedures Abscess I/D Site: astrid-rectal (Perineum) Local Anesthetic: lidocaine 1% Amount of anesthesia used (mL): 5 Technique: incised with blade Amount of fluid expressed (mL): 5 Sent for culture/gram staining?: No Irrigation: No Packing used?: iodoform Medical Decision Making Medical Decision Making [facility] Narrative: Patient with perineal abscess no deeper extension I and D was done foul-smelling pus was drained and packing was done advised to follow-up PCP/surgeon Lab Data [facility] Lab Attestation statement: I reviewed the patient's lab results. 01/01/24 14:45 01/01/24 14:45 Labs: Lab Results 01/01/24 Range/Units 14:45 WBC 12.2 H (4.8-10.8) X10*3/uL RBC 4.40 L (4.60-5.80) X10*6/uL Hgb 16.2 (14.0-18.0) g/dl Hct 44.7 (42.0-52.0) % MCV 101.6 H (80.0-98.0) fL MCH 36.8 H (27.0-33.0) pg MCHC 36.2 H (31.0-36.0) g/dl RDW 13.8 (11.0-16.0) % Plt Count 169 (160-400) X10*3/uL MPV 9.0 L (9.4-12.4) fL Immature Gran % (Auto) 0.4 (0.0-0.4) % Neut % (Auto) 82.2 H (45-73) % Lymph % (Auto) 7.8 L (20-40) % [place] % (Auto) 8.9 (2-11) % Eos % (Auto) 0.2 (0-4) % Baso % (Auto) 0.5 (0-2) % Lymph # (Auto) 1.0 L (1.2-4.9) X10*3/uL [place] # (Auto) 1.1 (0.1-1.2) X10*3/uL Eos # (Auto) 0.0 (0.0-0.4) X10*3/uL Baso # (Auto) 0.1 (0.0-0.2) X10*3/uL Abs Immat Gran (auto) 0.05 H (0.00-0.03) X10*3/uL Absolute Neuts (auto) 10.0 H (2.0-8.3) x10*3/uL Absolute Nucleated RBC 0.000 (0.0-0.012) X10*3/uL Nucleated RBC % (auto) 0.0 (0.0-0.2) /100WBC ESR 9 (0-15) MM/HR Hold Purple Top SEE NOTE Sodium 135 (135-145) mmol/L Potassium 4.3 (3.3-5.1) mmol/L Chloride 101 (96-108) mmol/L Carbon Dioxide 25 (22-29) mmol/L Anion Gap 13 (12-20) BUN 8 L (9-16) mg/dL Creatinine 0.86 (0.5-1.4) mg/dL Estim Creat Clear Calc 81.3 Estimated GFR > 60 Random Glucose 109 (60-115) mg/dL Lactic Acid 1.2 (0.5-2.0) mmol/L Calcium 9.7 (8.4-10.2) mg/dL Magnesium 2.4 (1.6-2.6) mg/dL Total Bilirubin 1.8 H (0.0-1.0) mg/dL AST 25 (5-37) U/L ALT 17 (0-40) U/L Alkaline Phosphatase 98 (39-117) U/L C-Reactive Protein 10.10 H (< or = 0.50) mg/dL Total Protein 7.3 (6.5-8.0) g/dL Albumin 4.2 (3.5-5.0) g/dL Independent Interpretation I performed an independent interpretation of an: CT Scan Radiology Impression Discussion of test interpretation with radiology: I have reviewed the radiologist's reading. Radiologist Impression: CT/CT pelvis w IV con IMPRESSION: Abnormal soft tissue in the perineum just posterior to the scrotum. There is a low-attenuation fluid collection measuring 3.5 x 1.5 x 3.2 cm in size consistent with a small superficial perineal abscess and associated overlying skin thickening. I do not appreciate any obvious extension to the anal sphincter. Discharge Plan Discharge Clinical Impression: Abscess of superficial perineal space Patient Disposition: Home, Self-Care Instructions: Abscess Incision and Drainage (DC) Additional Instructions: Local care as advised Take antibiotics as prescribed Packing removal in 2-3 days Report to the ER if worsening of the swelling/pain/fever Prescriptions: New doxycycline hyclate 100 mg tablet 100 mg PO BID Qty: 20 0RF amoxicillin-pot clavulanate 875-125 mg tablet 1 tab PO BID Qty: 20 0RF No Action lisinopril 30 mg tablet 30 mg PO DAILY 90 Days Qty: 90 2RF sildenafil [Viagra] 50 mg tablet 50 mg PO DAILY PRN (Reason: sexual activity) Qty: 14 6RF Rx Instructions: administer 30 minutes to 4 hours before activity hydrocodone-acetaminophen 5-300 mg tablet 1 tab PO BID PRN (Reason: pain) Qty: 60 0RF Rx Instructions: Partial Fill upon patient request. Interventions: ED Discharge Assessment Last Done: 01/01/24 22:58 Discharge Date/Time: 01/01/24 22:59 Print Language: Portuguese
[2024-01-01 15:02] LABS: MANUAL DIFF FLAG NO
[2024-01-01 15:05] LABS: Basophils Absolute Auto 0.1 X10*3/uL (0.0-0.2); Basophils Percent Auto 0.5 % (0-2); Eosinophils Percent Auto 0.2 % (0-4); Hematocrit 44.7 % (42.0-52.0); Hemoglobin 16.2 g/dl (14.0-18.0); Imm Gran Abs Auto 0.05 X10*3/uL (0.00-0.03); Imm Gran Pct Auto 0.4 % (0.0-0.4); Lymphocytes Percent Auto 7.8 % (20-40); Mean Corpuscular HGB Conc 36.2 g/dl (31.0-36.0); Mean Corpuscular Hemoglobin 36.8 pg (27.0-33.0); Mean Corpuscular Volume 101.6 fL (80.0-98.0); Monocytes Absolute Auto 1.1 X10*3/uL (0.1-1.2); Monocytes Percent Auto 8.9 % (2-11); Neutrophils Percent Auto 82.2 % (45-73); Platelet Count 169 X10*3/uL (160-400); Red Cell Distribution Width 13.8 % (11.0-16.0); White Blood Count 12.2 X10*3/uL (4.8-10.8)
[2024-01-01 15:26] LABS: Lactic Acid 1.2 mmol/L (0.5-2.0)
[2024-01-01 15:28] LABS: Alanine Aminotransferase 17 U/L (0-40); Albumin Level 4.2 g/dL (3.5-5.0); Alkaline Phosphatase 98 U/L (39-117); Anion Gap 13 (12-20); Aspartate Amino Transferase 25 U/L (5-37); Bilirubin Total 1.8 mg/dL (0.0-1.0); Blood Urea Nitrogen 8 mg/dL (9-16); Calcium 9.7 mg/dL (8.4-10.2); Carbon Dioxide 25 mmol/L (22-29); Chloride 101 mmol/L (96-108); Creatinine Clr Calc Pharmacy 81.3; Estimated Glomerular Filt Rate > 60; Glucose Random 109 mg/dL (60-115); Magnesium 2.4 mg/dL (1.6-2.6); Potassium 4.3 mmol/L (3.3-5.1); Sodium 135 mmol/L (135-145); Total Protein 7.3 g/dL (6.5-8.0)
[2024-01-01 15:45] LABS: Erythrocyte Sedimentation Rate 9 MM/HR (0-15)
[2024-01-01 17:25] VITALS: BP 189/95; PULSE 87; RESP 16; TEMP 37.5; O2SAT 97
[2024-01-01] MEDS: iohexoL 350 MG/ML 100 ML INFUS..BTL IV (20:02)
[2024-01-01 20:25] VITALS: BP 165/76; PULSE 89; RESP 16; TEMP 37.8; O2SAT 98
[2024-01-01] MEDS: Lidocaine HCl 1 % MPF 5 ML VIAL INFILTRATI (22:36)
[2024-01-01 22:51] VITALS: BP 160/84; PULSE 85; RESP 16; TEMP 37.5; O2SAT 97
[2024-01-01] MEDS: Amoxicillin/Potassium Clav 875 MG TABLET PO (22:55)
[2024-01-01] MEDS: Doxycycline Monohydrate 100 MG CAPSULE PO (22:55)
[2024-01-01 22:58] VITALS: BP 160/84; PULSE 85; RESP 16; TEMP 37.5; O2SAT 97
== END 2024-01-01 22:59 | disposition home or self-care (01) ==
PROVIDERS: Physician Assistant Medical; Emergency Provider Internal Medicine; PCP Internal Medicine
DX: L02.215 Cutaneous abscess of perineum (principal); R10.2 Pelvic and perineal pain; Z79.899 Other long term (current) drug therapy
CPT/HCPCS: 10060; 36415; 72193; 80053; 83605; 83735; 85025; 85652; 86140; 87040; 99284; Q9967

== ENCOUNTER 2024-02-29 13:59 | Outpatient (AMB) | payer MEDICARE, SELFPAY ==
[2024-02-29 14:01] VITALS: BP 154/86; PULSE 90; O2SAT 96; BMI 23.5
--- NOTE | 2024-02-29 14:01 | A.OFFPC_ITS ---
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 Accompanied by: Self / Same As Patient Allergies No Known Allergies [No Known Allergies*] Allergy (Verified 02/29/24 14:01) Tobacco use date assessed: 02/29/24 Fall risk assessment: No Falls in past year Last assessed Fall Risk: 02/29/24 Dental Screening Dental Screen Date: 02/29/24 Did you have a dental visit in the last 12 months?: Yes Did you have a dental problem in the last 6 months where you did not have access to dental care?: No Was dental information given to patient?: Patient has dentist HPI Chronic low back pain HPI Details 73-year-old male smoker with a failed ba ck syndrome on narcotic pain medication having hypertension hypercholesterolemia last seen in October 2023. Review of the notes ER visit for perineal abscess has had it I and D before. Had it done again. Treated with doxycycline and Augmentin. after taking the augmentin had abd pain- , states concern on constipation and took magnesium citrate but then had black stools then got sob and sent to [facility] ER - hypotension- had 4 u of PRBC tranfusion- had EGD- negative, colon test negative also. [facility] Medical History Tobacco abuse Hypercholesterolemia Hypertension Surgical History History of tonsillectomy History of hemorrhoidectomy Spinal stenosis Social History Housing: House Alcohol intake: current Alcohol intake frequency: does not drink Patient Tobacco Use Status: Current everyday Tobacco user Tobacco use type: Cigarette Cigarettes Per Day: 4 e-Cigarette/Vaping Use: Never Used Second Hand Smoke Exposure: Yes Advance Directives Date on File: 02/23/22 service: No Current occupational status: retired Cognitive needs: Yes (cane) Hearing needs: No Vision needs: Yes Questionnaire PHQ-9 Over the last 2 weeks, how often have you been bothered by any of the following problems? 1. Little interest or pleasure in doing things: not at all 2. Feeling down, depressed, or hopeless: not at all 3. Trouble falling or staying asleep, or sleeping too much: not at all 4. Feeling tired or having little energy: not at all 5. Poor appetite or overeating: not at all 6. Feeling bad about yourself - or that you are a failure or have let yourself or your family down: not at all 7. Trouble concentrating on things, such as reading the newspaper or watching television: not at all 8. Moving or speaking so slowly that other people could have noticed. Or the opposite - being so fidgety or restless that you have been moving around a lot more than usual: not at all 9. Thoughts that you would be better off or of hurting yourself in some way: not at all Total score: 0 Depression Screening Interpretation: Negative Depression Screening Done: Yes Source: Developed by Drs. Ramakrishna Blanc, Ramona Pena, Arvind Saldana and colleagues, with an educational dali from [employer]. Thrive Questionnaire Date Thrive assessed: 02/29/24 I am a: Patient What is your living situation today?: I have a steady place to live Within the past 12 months, did the food you bought not last and you didn't have the money to get more?: Never true Within the past 12 months, did you worry whether your food would run out before you got money to buy more?: Never true Do you have trouble paying for medicines?: No Do you have trouble getting transportation to medical appointments?: No Do you have trouble paying your heating and electricity bill?: No Do you have trouble taking care of your child, family member or friend?: No Do you have trouble with day-to-day activities such as bathing, preparing meals, shopping, managing finances, etc.?: No Are you currently unemployed and looking for a job?: No Are you interested in more education?: No Please select the resources that you would like help with: None Currently or been in a relationship where the following occur: No concerns reported THRIVE Score: 0 AUDIT C Alcohol Use Questionnaire (AUDIT-C) 1. How often do you have a drink containing alcohol?: Never 3. How often do you have six or more drinks on one occasion?: Never Total Score: 0 CALLY-7 AMB Questionnaire CALLY-7 Date CALLY - 7 assessed: 02/29/24 Feeling nervous, anxious, or on edge: 0 = Not at all Not being able to stop or control worryin = Not at all Worrying too much about different things: 0 = Not at all Trouble relaxin = Not at all Being so restless that it is hard to sit still: 0 = Not at all Becoming easily annoyed or irritable: 0 = Not at all Feeling afraid as if something awful might happen: 0 = Not at all Total CALLY-7 score (0-4 normal; 5-9 mild; 10-14 moderate; 15-21 severe): 0 Source: Developed by Drs. Ramakrishna Blanc, Ramona Pena, Arvind Saldana and colleagues, with an educational dali from [employer]. Physical exam (Primary Care) Vital Signs: Last Vital Signs Pulse 90 02/29/24 14:01 BP 154/86 H 02/29/24 14:01 Pulse Ox 96 02/29/24 14:01 Oxygen Delivery Method Room Air 02/29/24 14:01 BMI result Body Mass Index 23.5 Tobacco/Smoking Status: Tobacco use Status Tobacco use date assessed 02/29/24 02/29/24 14:07 Patient Tobacco Use Status Current everyday Tobacco 02/29/24 14:07 Tobacco use type Cigarette 02/29/24 14:07 e-Cigarette/Vaping Use Never Used 02/29/24 14:07 PHQ-9: PHQ-9 Score PHQ-9: Total score 0 02/29/24 14:07 Depression Screening Interpretation: Negative Thrive Assessment: Date of Thrive Assessment Date Thrive assessed 02/29/24 02/29/24 14:07 Currently or been in a relationship where the following occur: No concerns reported Const General: alert; No acute distress Eyes Conjunctivae: conjunctivae normal Resp Auscultation: clear to auscultation bilaterally Cardio Rate: regular rate Rhythm: regular rhythm GI Inspection: Yes normal to inspection Extrem General: Yes normal to inspection and No edema Assessment and Plan Assessment & Plan (1) Tobacco abuse: Comment: still smoking! (04/2023) Code(s): Z72.0 - Tobacco use Plan: Patient is strongly advised to stop smoking! (2) Colonoscopy refused: Code(s): Z53.20 - Procedure and treatment not carried out because of patient's decision for unspecified reasons Plan: Patient declined colonoscopy (3) Failed back syndrome: Code(s): M96.1 - Postlaminectomy syndrome, not elsewhere classified Plan: Narcotic pain meds: Is being prescribed with the understanding that these medications are potentially addictive and should be used only when absolutely necessary and must always be secured. Any remaining pills should be safely disposed off appropriately. Patient is advised that narcotics can impaired judgment and one should not drive or operate heavy machinery while taking these medications. Never share these medications with anybody and do not leave them unattended. They will not be replaced under any circumstances. (4) Hypercholesterolemia: Code(s): E78.00 - Pure hypercholesterolemia, unspecified Plan: Avoid fried foods, chicken skin, eggs, butter margarine, pastries and meat. Be it pork or beef they have a lot of cholesterol LDL goal of less than 130. last blood work 05/22/2023 (5) Impaired fasting blood sugar: Code(s): R73.01 - Impaired fasting glucose Plan: Decrease the amount of carbohydrate intake, pasta, bread, rice and potatoes are all sugar and that is aside from all the sweet stuff, remember that fruits are good but they are Sweet also. (6) Melena: Code(s): K92.1 - Melena Plan: workup done in [facility] and records pending- blood work pending (7) Hypertension: Comment: BP at home is good 08/2022 Code(s): I10 - Essential (primary) hypertension Plan: Blood pressure was held due to GI bleeding in the hospital. Advised to continue monitoring the blood pressure. Was on lisinopril Orders: Orders Complete Blood Count Auto Diff Today K92.1 - Melena Ferritin Today K92.1 - Melena Vitamin B12 and Folate Today K92.1 - Melena Hemoglobin A1c Today R73.01 - Impaired fasting glucose Comprehensive Met. Panel Today K92.1 - Melena Reticulocyte Count Today K92.1 - Melena Lipid Panel Today E78.00 - Pure hypercholesterolemia, unspecified, K92.1 - Melena IRON PROFILE Today K92.1 - Melena Thyroid Stimulating Hormone Today K92.1 - Melena Free T4 (Free Thyroxine) Today K92.1 - Melena UA w Microscopic Today R73.01 - Impaired fasting glucose Medications: Refilled hydrocodone-acetaminophen 5-300 mg Partial Fill upon patient request. 1 tab PO BID PRN 60 tabs 0RF pain M96.1 - Postlaminectomy syndrome, not elsewhere classified Coding Level of Care Code Est Pt Level 4 (01550) Diagnoses Tobacco abuse Z72.0 Colonoscopy refused Z53.20 Failed back syndrome M96.1 Hypercholesterolemia E78.00 Impaired fasting blood sugar R73.01 Melena K92.1 Hypertension I10
== END 2024-02-29 14:54 | disposition home or self-care (01) ==
PROVIDERS: PCP Internal Medicine; Visit Provider Internal Medicine
DX: Z72.0 Tobacco use (principal); Z53.20 Procedure and treatment not carried out because of patient's decision for unspecified reasons; M96.1 Postlaminectomy syndrome, not elsewhere classified; E78.00 Pure hypercholesterolemia, unspecified; R73.01 Impaired fasting glucose; K92.1 Melena; I10 Essential (primary) hypertension
CPT/HCPCS: 99214

== ENCOUNTER 2024-05-16 08:40 | Outpatient (REF) | payer MEDICARE, SELFPAY ==
[2024-05-16 08:54] LABS: MANUAL DIFF FLAG NO
[2024-05-16 09:08] LABS: Basophils Absolute Auto 0.1 X10*3/uL (0.0-0.2); Basophils Percent Auto 0.9 % (0-2); Eosinophils Absolute Auto 0.4 X10*3/uL (0.0-0.4); Eosinophils Percent Auto 6.2 % (0-4); Hematocrit 48.1 % (42.0-52.0); Hemoglobin 16.9 g/dl (14.0-18.0); Imm Gran Abs Auto 0.02 X10*3/uL (0.00-0.03); Imm Gran Pct Auto 0.3 % (0.0-0.4); Immature Retic Fraction 12.2 % (2.3-13.4); Lymphocytes Absolute Auto 1.8 X10*3/uL (1.2-4.9); Mean Corpuscular HGB Conc 35.1 g/dl (31.0-36.0); Mean Corpuscular Hemoglobin 33.3 pg (27.0-33.0); Mean Corpuscular Volume 94.7 fL (80.0-98.0); Mean Platelet Volume 8.9 fL (9.4-12.4); Monocytes Absolute Auto 0.6 X10*3/uL (0.1-1.2); Monocytes Percent Auto 9.5 % (2-11); Neutrophils Absolute Auto 3.9 x10*3/uL (2.0-8.3); Neutrophils Percent Auto 57.1 % (45-73); Platelet Count 178 X10*3/uL (160-400); Red Blood Count 5.08 X10*6/uL (4.60-5.80); Red Cell Distribution Width 15.7 % (11.0-16.0); Retic HGB Equivalent 39.1 pg (30.0-35.0); Reticulocyte Percent 1.3 % (0.5-1.8); Reticulocytes Absolute 0.065 X10*6/uL (0.026-0.095); White Blood Count 6.8 X10*3/uL (4.8-10.8)
[2024-05-16 09:27] LABS: Estimated Average Glucose 94 mg/dL; Hemoglobin A1C 136.0445 umol/L; Hemoglobin A1c % 4.9 % (<6.0); Total Hemoglobin (HGBA1C) 4471.7151 umol/L
[2024-05-16 09:34] LABS: Appearance Urine Clear; Color Urine Yellow; Glucose Urine UA Negative (Negative); Leukocyte Esterase Urine Negative (Negative); Nitrite Urine Negative (Negative); PH 5.5 (5.0-9.0); Specific Gravity - Urine <= 1.005 (1.005-1.025); Urine Blood Negative (Negative); Urine Ketones Negative (Negative); Urine Protein Negative (Neg-Trace)
[2024-05-16 09:41] LABS: Bacteria Urine None Seen (None Seen); Hyaline Casts Urine 0-2 /LPF (0-2); RBC Urine 0-2 /HPF (0-2); Squamous Epithelial Cell Urine 0-2 /HPF (0-2); WBC Urine 0-5 /HPF (0-5)
[2024-05-16 09:52] LABS: Alanine Aminotransferase 24 U/L (0-40); Albumin Level 4.3 g/dL (3.5-5.0); Alkaline Phosphatase 89 U/L (39-117); Anion Gap 11 (12-20); Aspartate Amino Transferase 35 U/L (5-37); Bilirubin Total 1.8 mg/dL (0.0-1.0); Blood Urea Nitrogen 7 mg/dL (9-16); Calcium 9.6 mg/dL (8.4-10.2); Carbon Dioxide 27 mmol/L (22-29); Chloride 104 mmol/L (96-108); Cholesterol 174 mg/dL (<200); Estimated Glomerular Filt Rate > 60; Glucose Random 110 mg/dL (60-115); HDL Cholesterol 65 mg/dL (>40); Iron 282 mcg/dL (45-160); LDL Cholesterol Calculated 84 mg/dL (<100); Percent Iron Saturation 92 % (15-50); Potassium 5.1 mmol/L (3.3-5.1); Sodium 137 mmol/L (135-145); Total Iron Binding Capacity 307 mcg/dL (228-428); Total Protein 7.3 g/dL (6.5-8.0); Triglycerides 129 mg/dL (<150); Unsaturated Iron Binding < 25 ug/dL
[2024-05-16 09:59] LABS: Ferritin 133 ng/mL (20-250); Free T4 (Free Thyroxine) 0.97 ng/dL (0.71-1.85); Thyroid Stimulating Hormone 1.18 uIU/mL (0.32-4.0)
[2024-05-16 10:08] LABS: Folate 10.7 ng/mL (> or = 4.0); Vitamin B12 242 pg/mL (200-900)
== END 2024-05-16 08:41 | disposition home or self-care (01) ==
LOC: HO.LAB 08:40
PROVIDERS: PCP Internal Medicine; Visit Provider Internal Medicine
DX: K92.1 Melena (principal); E78.00 Pure hypercholesterolemia, unspecified; R73.01 Impaired fasting glucose
CPT/HCPCS: 36415; 80053; 80061; 81001; 82607; 82728; 82746; 83036; 83540; 84439; 84443; 85025; 85045

== ENCOUNTER 2024-05-23 12:49 | Outpatient (AMB) | payer MEDICARE, SELFPAY ==
[2024-05-23 12:58] VITALS: BP 142/80; PULSE 85; O2SAT 98; BMI 23.7
--- NOTE | 2024-05-23 12:58 | A.OFFPC_ITS ---
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 Accompanied by: Self / Same As Patient Allergies No Known Allergies [No Known Allergies*] Allergy (Verified 05/23/24 12:59) Medication List - Last Reconciled 05/23/24 by Kenji Melvin MD hydrocodone-acetaminophen 5-300 mg 1 tab PO BID PRN sildenafil (Viagra) 50 mg PO DAILY PRN trazodone 50 mg PO BEDTIME PRN Tobacco use date assessed: 05/23/24 Fall risk assessment: No Falls in past year Last assessed Fall Risk: 05/23/24 Dental Screening Dental Screen Date: 05/23/24 Did you have a dental visit in the last 12 months?: No Did you have a dental problem in the last 6 months where you did not have access to dental care?: No Was dental information given to patient?: No HPI Ear complaints, Hearing Lost HPI Details 73-year-old male smoker with a history o f failed back syndrome on narcotic pain medication, hypercholesterolemia hypertension last seen in February 2024. Patient has declined colonoscopy. Comes in for an acute problem. blood work discussed , states a lot of stress- asking for sleeping med- has trazodone ands took this and helps. Patient statrted with the BP med again. Patient has asks for a additional pain medication but discussed with the patient I have declined this due to knowledge of tolerance. Otherwise patient complains of having tinnitus and was asking for treatment but discussed with the patient that most often the problem is hearing loss he does have hearing aid but declined to use it. [facility] Medical History Tobacco abuse Hypercholesterolemia Hypertension Surgical History History of tonsillectomy History of hemorrhoidectomy Spinal stenosis Social History Housing: House Alcohol intake: current Alcohol intake frequency: does not drink Patient Tobacco Use Status: Current everyday Tobacco user Tobacco use type: Cigarette Cigarettes Per Day: 4 e-Cigarette/Vaping Use: Never Used Second Hand Smoke Exposure: Yes Advance Directives Date on File: 02/23/22 service: No Current occupational status: retired Cognitive needs: Yes (cane) Hearing needs: No Vision needs: Yes Questionnaire PHQ-9 Over the last 2 weeks, how often have you been bothered by any of the following problems? 1. Little interest or pleasure in doing things: not at all 2. Feeling down, depressed, or hopeless: not at all 3. Trouble falling or staying asleep, or sleeping too much: not at all 4. Feeling tired or having little energy: not at all 5. Poor appetite or overeating: not at all 6. Feeling bad about yourself - or that you are a failure or have let yourself or your family down: not at all 7. Trouble concentrating on things, such as reading the newspaper or watching television: not at all 8. Moving or speaking so slowly that other people could have noticed. Or the opposite - being so fidgety or restless that you have been moving around a lot more than usual: not at all 9. Thoughts that you would be better off or of hurting yourself in some way: not at all Total score: 0 Depression Screening Interpretation: Negative Depression Screening Done: Yes Source: Developed by Drs. Ramakrishna Blanc, Ramona Pena, Arvind Saldana and colleagues, with an educational dali from [employer]. Thrive Questionnaire Date Thrive assessed: 05/23/24 I am a: Patient What is your living situation today?: I have a steady place to live Within the past 12 months, did the food you bought not last and you didn't have the money to get more?: Never true Within the past 12 months, did you worry whether your food would run out before you got money to buy more?: Never true Do you have trouble paying for medicines?: No Do you have trouble getting transportation to medical appointments?: No Do you have trouble paying your heating and electricity bill?: No Do you have trouble taking care of your child, family member or friend?: No Do you have trouble with day-to-day activities such as bathing, preparing meals, shopping, managing finances, etc.?: No Are you currently unemployed and looking for a job?: No Are you interested in more education?: No Please select the resources that you would like help with: None Currently or been in a relationship where the following occur: No concerns reported THRIVE Score: 0 AUDIT C Alcohol Use Questionnaire (AUDIT-C) 1. How often do you have a drink containing alcohol?: Never 3. How often do you have six or more drinks on one occasion?: Never Total Score: 0 CALLY-7 AMB Questionnaire CALLY-7 Date CALLY - 7 assessed: 05/23/24 Feeling nervous, anxious, or on edge: 0 = Not at all Not being able to stop or control worryin = Not at all Worrying too much about different things: 0 = Not at all Trouble relaxin = Not at all Being so restless that it is hard to sit still: 0 = Not at all Becoming easily annoyed or irritable: 0 = Not at all Feeling afraid as if something awful might happen: 0 = Not at all Total CALLY-7 score (0-4 normal; 5-9 mild; 10-14 moderate; 15-21 severe): 0 Source: Developed by Drs. Ramakrishna Blanc, Ramona Pena, Arvind Saldana and colleagues, with an educational dali from [employer]. Physical exam (Primary Care) Vital Signs: Last Vital Signs Pulse 85 05/23/24 12:58 BP 142/80 H 05/23/24 12:58 Pulse Ox 98 05/23/24 12:58 Oxygen Delivery Method Room Air 05/23/24 12:58 BMI result Body Mass Index 23.7 Tobacco/Smoking Status: Tobacco use Status Tobacco use date assessed 05/23/24 05/23/24 13:05 Patient Tobacco Use Status Current everyday Tobacco 05/23/24 13:05 Tobacco use type Cigarette 05/23/24 13:05 e-Cigarette/Vaping Use Never Used 05/23/24 13:05 PHQ-9: PHQ-9 Score PHQ-9: Total score 0 05/23/24 13:05 Depression Screening Interpretation: Negative Thrive Assessment: Date of Thrive Assessment Date Thrive assessed 05/23/24 05/23/24 13:05 Currently or been in a relationship where the following occur: No concerns reported Const General: alert; No acute distress Eyes Conjunctivae: conjunctivae normal Resp Auscultation: clear to auscultation bilaterally Cardio Rate: regular rate Rhythm: regular rhythm GI Inspection: Yes normal to inspection Extrem General: Yes normal to inspection and No edema Coding Level of Care Code Est Pt Level 4 (56606) Diagnoses Tobacco abuse Z72.0 Failed back syndrome M96.1 Impaired fasting blood sugar R73.01 Hypercholesterolemia E78.00 Vitamin B 12 deficiency E53.8 Primary insomnia F5. Insomnia type: primary Primary hypertension I10 Hypertension type: primary hypertension Assessment & Plan Assessment & Plan (1) Tobacco abuse: Comment: still smoking! (04/2023) Code(s): Z72.0 - Tobacco use Category: Medical Plan: Patient is strongly advised to stop smoking! (2) Failed back syndrome: Code(s): M96.1 - Postlaminectomy syndrome, not elsewhere classified Category: Medical Plan: Narcotic pain meds: Is being prescribed with the understanding that these medications are potentially addictive and should be used only when absolutely necessary and must always be secured. Any remaining pills should be safely disposed off appropriately. Patient is advised that narcotics can impaired judgment and one should not drive or operate heavy machinery while taking these medications. Never share these medications with anybody and do not leave them unattended. They will not be replaced under any circumstances. (3) Impaired fasting blood sugar: Code(s): R73.01 - Impaired fasting glucose Category: Medical Plan: Decrease the amount of carbohydrate intake, pasta, bread, rice and potatoes are all sugar and that is aside from all the sweet stuff, remember that fruits are good but they are Sweet also. (4) Hypercholesterolemia: Code(s): E78.00 - Pure hypercholesterolemia, unspecified Category: Medical Plan: Avoid fried foods, chicken skin, eggs, butter margarine, pastries and meat. Be it pork or beef they have a lot of cholesterol LDL goal of less than 130 and triglyceride of less than 150 (5) Vitamin B 12 deficiency: Code(s): E53.8 - Deficiency of other specified B group vitamins Category: Medical Plan: Vitamin B12 1000 mcg once a day (6) Insomnia: Code(s): G47.00 - Insomnia, unspecified Category: Medical Qualifiers: Insomnia type: primary Qualified Code(s): F51.01 - Primary insomnia Plan: trazodone 50 mg once a day prescribed (7) Hypertension: Code(s): I10 - Essential (primary) hypertension Category: Medical Qualifiers: Hypertension type: primary hypertension Qualified Code(s): I10 - Essential (primary) hypertension Plan: Continue with blood pressure medication. Decrease salt intake and exercise continue with lisinopril 30 mg once a day and continue to monitor blood pressure. Medications: New trazodone 50 mg PO BEDTIME PRN 30 tabs 2RF sleep G47.00 - Insomnia, unspecified Refilled lisinopril 30 mg PO DAILY 90 days 90 tabs 2RF I10 - Essential (primary) hypertension
== END 2024-05-23 14:18 | disposition home or self-care (01) ==
PROVIDERS: PCP Internal Medicine; Visit Provider Internal Medicine
DX: Z72.0 Tobacco use (principal); M96.1 Postlaminectomy syndrome, not elsewhere classified; R73.01 Impaired fasting glucose; E78.00 Pure hypercholesterolemia, unspecified; E53.8 Deficiency of other specified B group vitamins; F51.01 Primary insomnia; I10 Essential (primary) hypertension

== ENCOUNTER → 2024-05-23 12:49 | Outpatient (BNVA) | payer MEDICARE, SELFPAY | PROVIDERS: PCP Internal Medicine; Visit Provider Internal Medicine | DX: M96.1 Postlaminectomy syndrome, not elsewhere classified (principal); R73.01 Impaired fasting glucose; E78.00 Pure hypercholesterolemia, unspecified; F51.01 Primary insomnia; I10 Essential (primary) hypertension; Z72.0 Tobacco use | CPT/HCPCS: 96127; 99212 ==

== ENCOUNTER 2024-10-25 12:53 | Outpatient (AMB) | payer MEDICARE, SELFPAY ==
[2024-10-25 12:59] VITALS: BP 138/78; PULSE 88; O2SAT 98; BMI 23.2
--- NOTE | 2024-10-25 12:59 | A.OFFPC_ITS ---
Vital Signs 10/25/24 12:59 Height 5 ft 10 in Weight 162 lb BMI 23.2 BP 138/78 Blood Pressure Location Lt brachial Position Sitting Pulse 88 Pulse Source Pulse Oximeter Pulse Oximetry (%) 98 Oxygen Delivery Method Room Air Intake Visit Reasons: annual exam Allergies No Known Allergies [No Known Allergies*] Allergy (Verified 10/25/24 12:59) Medication List - Last Reconciled 10/25/24 by Kenji Melvin MD cyanocobalamin (vitamin B-12) 1,000 mcg PO DAILY hydrocodone-acetaminophen 5-300 mg 1 tab PO BID PRN lisinopril 30 mg PO DAILY 90 days sildenafil (Viagra) 50 mg PO DAILY PRN trazodone 50 mg PO BEDTIME PRN Tobacco use date assessed: 10/25/24 Fall risk assessment: No Falls in past year Last assessed Fall Risk: 10/25/24 Dental Screening Dental Screen Date: 10/25/24 Did you have a dental visit in the last 12 months?: No Did you have a dental problem in the last 6 months where you did not have access to dental care?: No Was dental information given to patient?: No [facility] Medical History (Updated 10/25/24 @ 14:05 by Kenji Melvin MD) Tobacco abuse Hypercholesterolemia Hypertension Surgical History History of tonsillectomy History of hemorrhoidectomy Spinal stenosis Social History (Updated 10/25/24 @ 13:55 by Kenji Melvin MD) Housing: House Alcohol intake: current Alcohol intake frequency: does not drink Comment: once Q 4 months 1 glass Patient Tobacco Use Status: Current everyday Tobacco user Tobacco use type: Cigarette Cigarettes Per Day: 8 Years Smoked: 17 year s old e-Cigarette/Vaping Use: Never Used Second Hand Smoke Exposure: Yes Advance Directives Date on File: 02/23/22 service: No Current occupational status: retired Cognitive needs: Yes (cane) Hearing needs: No Vision needs: Yes Questionnaire PHQ-9 Over the last 2 weeks, how often have you been bothered by any of the following problems? 1. Little interest or pleasure in doing things: not at all 2. Feeling down, depressed, or hopeless: not at all 3. Trouble falling or staying asleep, or sleeping too much: not at all 4. Feeling tired or having little energy: not at all 5. Poor appetite or overeating: not at all 6. Feeling bad about yourself - or that you are a failure or have let yourself or your family down: not at all 7. Trouble concentrating on things, such as reading the newspaper or watching television: not at all 8. Moving or speaking so slowly that other people could have noticed. Or the opposite - being so fidgety or restless that you have been moving around a lot more than usual: not at all 9. Thoughts that you would be better off or of hurting yourself in some way: not at all Total score: 0 Depression Screening Interpretation: Negative Depression Screening Done: Yes 47781 - PHQ-9 Billing: Yes Source: Developed by Drs. Ramakrishna Blanc, Ramona Pena, Arvind Saldana and colleagues, with an educational dali from [employer]. Thrive Questionnaire Date Thrive assessed: 10/25/24 I am a: Patient What is your living situation today?: I have a steady place to live Within the past 12 months, did the food you bought not last and you didn't have the money to get more?: Never true Within the past 12 months, did you worry whether your food would run out before you got money to buy more?: Never true Do you have trouble paying for medicines?: No Do you have trouble getting transportation to medical appointments?: No Do you have trouble paying your heating and electricity bill?: No Do you have trouble taking care of your child, family member or friend?: No Do you have trouble with day-to-day activities such as bathing, preparing meals, shopping, managing finances, etc.?: No Are you currently unemployed and looking for a job?: No Are you interested in more education?: No Please select the resources that you would like help with: None Currently or been in a relationship where the following occur: No concerns reported THRIVE Score: 0 AUDIT C Alcohol Use Questionnaire (AUDIT-C) 1. How often do you have a drink containing alcohol?: Never 3. How often do you have six or more drinks on one occasion?: Never Total Score: 0 CALLY-7 AMB Questionnaire CALLY-7 Date CALLY - 7 assessed: 10/25/24 Feeling nervous, anxious, or on edge: 0 = Not at all Not being able to stop or control worryin = Not at all Worrying too much about different things: 0 = Not at all Trouble relaxin = Not at all Being so restless that it is hard to sit still: 0 = Not at all Becoming easily annoyed or irritable: 0 = Not at all Feeling afraid as if something awful might happen: 0 = Not at all Total CALLY-7 score (0-4 normal; 5-9 mild; 10-14 moderate; 15-21 severe): 0 Source: Developed by Drs. Ramakrishna Blanc, Ramona Pena, Arvind Saldana and colleagues, with an educational dali from [employer]. CALLY-7 Assessment Billing CALLY-7 Assessment Tool: CALLY-7 Assessment 60944 Review of Systems Const Denies poor appetite and Denies weakness Eyes Denies no additional complaints ENT Reports Normal hearing present, Denies dizziness, Denies nasal congestion, Denies tinnitus and Denies sore throat Card Denies chest pain, Denies syncope, Denies rapid heart rate and Denies dyspnea Resp Denies cough and Denies dyspnea GI Denies change in stool character, Reports constipation, Denies diarrhea, Denies nausea and Denies vomiting Denies dysuria and Denies urinary frequency Neuro Reports Normal hearing present, Denies confusion, Denies dizziness, Denies syncope and Denies weakness Psych Denies confusion Physical exam (Primary Care) Vital Signs: Last Vital Signs Pulse 88 10/25/24 12:59 BP 138/78 10/25/24 12:59 Pulse Ox 98 10/25/24 12:59 Oxygen Delivery Method Room Air 10/25/24 12:59 BMI result Body Mass Index 23.2 Tobacco/Smoking Status: Tobacco use Status Tobacco use date assessed 10/25/24 10/25/24 13:00 Patient Tobacco Use Status Current everyday Tobacco 10/25/24 13:55 Tobacco use type Cigarette 10/25/24 13:55 e-Cigarette/Vaping Use Never Used 10/25/24 13:55 PHQ-9: PHQ-9 Score PHQ-9: Total score 0 10/25/24 13:52 Depression Screening Interpretation: Negative Thrive Assessment: Date of Thrive Assessment Date Thrive assessed 10/25/24 10/25/24 13:00 Currently or been in a relationship where the following occur: No concerns reported Const General: No confusion Orientation/consciousness: No confusion HENMT Head: Yes normocephalic Ears: external ears normal and TM's normal bilaterally Face and sinus: Yes normal facial exam Mouth: moist mucous membranes Throat: Yes tonsils normal Eyes Conjunctivae: conjunctivae normal Pupils: Equal, round and reactive pupils present and Pupil accommodation reflex normal Direct Ophthalmoscopy: normal light reflex Neck Neck: No lymphadenopathy Thyroid: Thyroid normal Chest Chest palpation & inspection: normal inspection of the chest Resp Effort & Inspection: normal respiratory effort and no audible wheezes Auscultation: clear to auscultation bilaterally, no crackles, no wheezes and lung sounds not diminished Cardio Rate: regular rate Rhythm: regular rhythm Peripheral pulses: radial pulses present and dorsalis pedis present GI Other: giuaiac negative , prostate enlarged Palpation (GI): no masses Auscultation: normal bowel sounds and normoactive bowel sounds Other: mild bulge bilateral inguinal area nL > R Skin General skin exam: no rashes or lesions noted Rashes: no rashes Neuro General: No confusion Cranial nerves: Yes Equal, round and reactive pupils present and Yes Normal hear ing present Cognition (Neuro): normal cognition Gait exam (Neuro): Normal gait present Motor exam (neuro): 5/5 motor strength present throughout Deep tendon reflexes (DTR's): Right brachioradialis reflex intensity grade: 2+, Left brachioradialis reflex intensity grade: 2+, Right patellar reflex intensity grade: 2+ and Left patellar reflex intensity grade: 2+ Extrem General: No edema Coding Level of Care Code Est Pt Prev Care >65y(43816) Diagnoses Annual physical exam Z00.00 Vitamin B 12 deficiency E53.8 Tobacco abuse Z72.0 Colonoscopy refused Z53.20 Failed back syndrome M96.1 Impaired fasting blood sugar R73.01 Primary hypertension I10 Hypertension type: primary hypertension Hypercholesterolemia E78.00 BPH (benign prostatic hyperplasia) N40.0 Inguinal hernia bilateral, non-recurrent K40.20 Additional Codes CALLY-7 Assessment Billing - CALLY-7 Assessment Tool: CALLY-7 Assessment 13610 ([id number]) PHQ-9 - 52263 - PHQ-9 Billing: Yes ([id number]) Assessment & Plan Assessment & Plan (1) Annual physical exam: Code(s): Z00.00 - Encounter for general adult medical examination without abnormal findings Category: Medical Plan: Avoid the foods that causes that usually spicy foods, tomato products, juices, coffee, soda and foods that your sensitive to. After eating do not lie down, allow 3-4 hours before in lie down. And keep the head of bed above 30 degrees to avoid the acid from going up. (2) Vitamin B 12 deficiency: Code(s): E53.8 - Deficiency of other specified B group vitamins Category: Medical Plan: Vitamin B12 1000 mcg once a day (3) Tobacco abuse: Comment: still smoking! (04/2023) declined lung cancer screening Code(s): Z72.0 - Tobacco use Category: Medical Plan: Patient is strongly advised to stop smoking (4) Colonoscopy refused: Code(s): Z53.20 - Procedure and treatment not carried out because of patient's decision for unspecified reasons Category: Medical Plan: Discussed about the importance of having colonoscopy (5) Failed back syndrome: Code(s): M96.1 - Postlaminectomy syndrome, not elsewhere classified Category: Medical Plan: Narcotic pain meds: Is being prescribed with the understanding that these medications are potentially addictive and should be used only when absolutely necessary and must always be secured. Any remaining pills should be safely disposed off appropriately. Patient is advised that narcotics can impaired judgment and one should not drive or operate heavy machinery while taking these medications. Never share these medications with anybody and do not leave them unattended. They will not be replaced under any circumstances. (6) Impaired fasting blood sugar: Code(s): R73.01 - Impaired fasting glucose Category: Medical Plan: Decrease the amount of carbohydrate intake, pasta, bread, rice and potatoes are all sugar and that is aside from all the sweet stuff, remember that fruits are good but they are Sweet also. (7) Hypertension: Code(s): I10 - Essential (primary) hypertension Category: Medical Qualifiers: Hypertension type: primary hypertension Qualified Code(s): I10 - Essential (primary) hypertension Plan: Continue with blood pressure medication. Decrease salt intake and exercise on lisinopril 30 mg once a day Avoid fried foods, chicken skin, eggs, butter margarine, pastries and meat. Be it pork or beef they have a lot of cholesterol LDL goal of less than 130 and triglyceride of less than 150 (8) Hypercholesterolemia: Code(s): E78.00 - Pure hypercholesterolemia, unspecified Category: Medical (9) BPH (benign prostatic hyperplasia): Code(s): N40.0 - Benign prostatic hyperplasia without lower urinary tract symptoms Category: Medical (10) Inguinal hernia bilateral, non-recurrent: Comment: mild 10/2024 Code(s): K40.20 - Bilateral inguinal hernia, without obstruction or gangrene, not specified as recurrent Category: Medical Plan History of Present Illness The patient is a 74-year-old male presenting for a physical exam and review of chronic health management. His health history includes lumbar spinal stenosis, hypertension, hypercholesterolemia, and impaired glucose tolerance. Despite normal renal function and blood count, elevated blood sugar levels and noted low vitamin B12 from recent testing have been observed. He remains a smoker of eight cigarettes daily and has a limited intake of alcohol. There are no interests in updating colonoscopy or lung cancer screenings. An enlarged prostate is observed but the patient does not report urinary disturbances. Cataracts will undergo further evaluation. Health Maintenance - Last colonoscopy performed in July 2010. - Bloodwork as of May 2024 showed normal blood count, renal function, elevated blood sugar, and low vitamin B12 levels. - Recent LDL cholesterol level at 84 mg/dL. - Vitamin B12 supplementation with 1000 mcg daily. - Hypertension management via Lisinopril 30 mg daily. - Encouragement provided to quit smoking. - Acknowledged cataract in the left eye requiring follow-up. Social History - Smoker: Approximately eight cigarettes per day since age 17. - Limited alcohol intake: Approximately one glass of wine every four months. - Reports no current employment details or living arrangements. - No mention of family structure or education levels. Review of Systems - General: Reports no fever, dizziness, or nausea. - Gastrointestinal: Denies difficulty swallowing, heartburn, constipation, or blood in stool. - Genitourinary: Reports no frequent nighttime urination or urinary incontinence. - Respiratory: Denies shortness of breath or chest pain. - Neurological: Denies headaches or recent fainting. - Eyes: Reports blurred vision in the left eye due to cataract. - Ears, Nose, Throat: Reports morning nasal congestion, possibly due to allergies. Physical Exam General: Cooperative, healthy appearing, comfortable, no acute distress and well developed Orientation: Patient oriented x3 Limitations: No limitations Head: Normal to inspection Ears: Hearing grossly normal bilaterally, some ear wax noted Nose: Normal external nose present, slight morning stuffiness, likely allergies Face and sinus: Normal facial exam Eyes: Appearance normal, cataract noted in left eye, right eye cataract surgery done years ago Neck: Normal visual inspection and Yes full ROM Respiratory: Normal respiratory effort and able to speak in complete sentences. Clear to auscultation bilaterally Cardiovascular: Regular rate and rhythm. Normal S1 and S2 GI: Normal to inspection. Soft to palpation and nontender Skin: No rashes or lesions noted Neuro: Patient oriented x3 Extremities: Normal to inspection Results - Labs: Normal blood count and renal function from May 2024; elevated blood sugar; low Vitamin B12 at 242 pg/mL; LDL cholesterol 84 mg/dL. - Tests: Vision testing pending follow-up for cataract management. Plan The management of essential hypertension continues with the current regimen of Lisinopril 30 mg daily. Address nicotine dependence by encouraging cessation, considering potential cessation aids. Manage hypercholesterolemia and implied glucose tolerance through dietary measures, monitoring, with a recommended vi tamin supplement. Re-evaluate the enlarged prostate as needed, especially if urinary symptoms develop. Follow up with an manager hair is advised for cataract management. Ensure continuation of current medications with necessary prescription renewals. Patient was informed and verbally consented to the use of an ambient scribe for clinic note documentation during this visit. Discussion Notes I discussed with the patient the importance of managing his chronic conditions, including hypertension and hypercholesterolemia. We reviewed his bloodwork, highlighting the need for ongoing glucose monitoring and vitamin B12 supplementation. I strongly advised smoking cessation due to its health implications. I informed the patient about potential prostate issues and the need for an ophthalmological evaluation of his cataract. Medications prescribed include Lisinopril and his current pain management regime. Follow-up in three months was advisable for comprehensive ongoing assessment. Patient Instructions - Take Vitamin B12 1000 mcg daily. - Continue taking Lisinopril as prescribed. - Quit smoking and consider using patches or cessation programs. - Follow up with an hiv prevention specialist for cataract evaluation. - Drink more water daily. - Report any new symptoms like frequent urination or vision changes. - Keep active and eat a balanced diet. - Come back in three months for monitoring or sooner if symptoms worsen. Medications: Refilled hydrocodone-acetaminophen 5-300 mg Partial Fill upon patient request. 1 tab PO BID PRN 60 tabs 0RF pain M96.1 - Postlaminectomy syndrome, not elsewhere classified
--- OUTSIDE RECORDS SUMMARY | 2024-10-25 13:34 | XMS_ITS | Clinical Summary ---
Author Organization [facility] Address [address] [place] [address] Care Team Providers Care Certified Nurse Name Role Phone Gabriela Pérez MD Primary Care Provider [phone] Allergies Active Allergy Reactions Criticality Noted Date Comments Rosuvastatin Calcium Other 07/05/2019 Myalgia and Joint Pain Medications lisinopriL (PRINIVIL,ZESTR IL) 20 mg tablet Take 1 tablet (20 mg total) by mouth 1 (one) time each day. 05/20/2021 Active predniSONE (DELTASONE) 20 mg tablet Take 1 tablet by mouth daily. Take 20 mg tab by mouth twice a day for days 1-7. Take 20mg tab by mouth once a day for days 8-12 02/09/2021 Active fluticasone propionate (FLONASE) 50 mcg/actuation nasal spray 2 sprays each nostril twice daily as needed. 03/31/2020 Active Active Problems Problem Noted Date Diagnosed Date Lung nodules 06/19/2024 Gout 11/05/2020 Heavy alcohol use 11/05/2020 COPD, mild (CMS/HCC V24, CMS/HCC V28) 03/31/2020 Aneurysm of thoracic aorta (CMS/HCC V24) 017 Hyperlipidemia 04/09/2014 Cervical radicular pain 05/02/2012 Lumbar back pain with radicu lopathy affecting lower extremity 10/29/2009 Overview (06/19/2024): 10/20 decompression L2-4, left Depression 11/07/2008 Essential hypertension, benign 11/01/2006 Encounters Date Type Department Care Team Description 08/16/2024 Telephone Lung Screening Program - [address] [place] [address] Rosalia Pena MA Appointment (Final Outreach) from Last 3 Months Immunizations Name Administration Dates Next Due Influenza trivalent, 0.5mL ( Fluad) 65yo and older 04/01/2020,05/14/2019 Influenza trivalent, with pr eservative (Fluzone; Afluria) 6mo and older 04/08/2014,05/01/2013,05/02/2012 Pneumococcal conjugate 13 va lent (Prevnar 13, PCV13) 2mo and older 05/14/2019 Pneumococcal polysaccharide 23 valent (Pneumovax 23) 2yo and older 11/05/2020 Td Tetanus diptheria (Tdvax) 7yo and older 10/09,10/10/2003 Tdap Tetanus diptheria acell ular pertussis (Boostrix; Adacel) 7yo and older 10/30/2012 Zoster Live 10/30/2012 Surgical History Surgery Date Site/Laterality Comments OTHER SURGICAL HISTORY PROCEDURE: [place] HEMORRHOIDECTOMY XTRNL 2/> COLUMN/GROUP COLONOSCOPY 07/21/2010 PROCEDURE: HISTORICAL COLONOSCOPY; COMMENT: bleeding hemorrhoids; repeat in 10 years BACK SURGERY 12/2009 PROCEDURE: HISTORICAL BACK SURGERY; COMMENT: TWO surgeries; Dr. Anton COLONOSCOPY 07/08/2002 PROCEDURE: HISTORICAL COLONOSCOPY; COMMENT: negative NECK SURGERY PROCEDURE: HISTORICAL NECK SURGERY; COMMENT: Dr. Cevallos Medical History Medical History Date Comments Essential hypertension, benign 11/01/2006 D X:Essential hypertension, benign Cataract associated with oth er syndromes DX:Cataract associated with other syndromes Tobacco use DX:Tobacco use Dyslipidemia DX:Dyslipidemia Dilatation of thoracic aorta (CMS/HCC V24) 01/2017 DX:Dilatation of thoracic ao rta (HCC); COMMENT: mild 3.8 cm on LDCT Lung nodules DX:Lung nodules Macrocytosis without anemia DX:M acrocytosis without anemia Lumbar back pain with radicu lopathy affecting lower extremity 10/29/2009 DX:Lumbar back pain with radiculopathy affecting lower extremity; COMMENT: 10/20 decompression L2-4, left Family History Medical History Relation Name Comments Diabetes Brother x 3 hep C, hemochro matosis Prostate cancer Father arthritis, g out Stroke Mother HTN, HLD, breas t cancer (age 80) Cirrhosis Paternal Grandfather Lung cancer Sister x 1 +smoker Relation Name Status Comments Brother x 3 Alive Father (Age 81) Maternal Grandfather Maternal Grandmother Mother (Age 85) Paternal Grandfather Paternal Grandmother Sister x 1 Social History Tobacco Use Types Packs/Day Years Used Date Smoking Tobacco: Every Day Smokeless Tobacco: Never Alcohol Use Standard Drinks/Week Comments Yes 21 (1 standard drink = 0.6 oz pu re alcohol) Sex and Gender Information Value Date Recorded Sex Assigned at Not on file Legal Sex Male 11:22 AM EST Gender Identity Not on file Sexual Orientation Not on file Obstetrics History Plan of Treatment Health Maintenance Due Date Last Done Comments RSV Immunization Adult Patients (1 - Risk 60-74 years 1-dose series) 2012 Zoster Vaccines (2 of 3) 12/25/2012 10/30/2012 Abdominal Aortic Aneurysm (AAA) Screen 05/31/2022 Depression Screening 05/31/2022 Falls Risk Assessment 05/31/2022 Social Influencers of Health Screening 05/31/2022 Hypertension/CHF/CAD Annual BMP Blood Test 06/16/2022 04/01/2020 DTaP,Tdap,and Td Vaccines (4 - Td or Tdap) 10/30/2022 10/30/2012, 10/10/2003, 10/10/2003 COVID-19 Vaccine ( - season) 2024 Influenza Vaccine (Season Ended) 2025 04/01/2020, 05/14/2019, 04/08/2014, Additional history exists Cholesterol Screening (Lipid Panel) 04/01/2025 04/01/2020 Colorectal Cancer Screening: Colonoscopy 01/24/2034 01/25/2024 Hepatitis C Screening Completed 04/22/2005 Pneumococcal Vaccine: 50+ Years Completed 11/05/2020, 05/14/2019 HIB Vaccines Aged Out No longer eligi ble based on patient's age to complete this topic HPV Vaccines Aged Out No longer eligi ble based on patient's age to complete this topic Hepatitis A Vaccines Aged Out No long er eligible based on patient's age to complete this topic Hepatitis B Vaccines Aged Out No long er eligible based on patient's age to complete this topic IPV Vaccines Aged Out No longer eligi ble based on patient's age to complete this topic MMR Vaccines Aged Out No longer eligi ble based on patient's age to complete this topic Meningococcal ACWY Vaccine Aged Out N o longer eligible based on patient's age to complete this topic Meningococcal B Vaccine Aged Out No l onger eligible based on patient's age to complete this topic RSV Immunization Patients Under 20 months Aged Out No longer eligible based on patient's age to complete this topic Varicella Vaccines Aged Out No longer eligible based on patient's age to complete this topic Procedures Procedure Name Priority Date/Time Associated Diagnosis Comments COLONOSCOPY Routine 01/25/2024 ANNUAL BMP BLOOD TEST Routine 04/01/2020 LIPID PANEL Routine 04/01/2020 HEPATITIS C SCREENING Routine 04/22/2005 from Last 3 Months or Most Recently Relevant to Health Maintenance Results * Colonoscopy (01/25/2024) Pathologist [facility] Colonoscopy Abstracted, No Interpretation Anatomical Region Laterality Modality Other [facility] Provider HEALTH MAINTENANCE Final Result * Annual BMP Blood Test (04/01/2020) Pathologist [facility] Annual BMP Blood Test Abstracted [facility] Provider HEALTH MAINTENANCE Final Result * (ABNORMAL) Lipid panel (04/01/2020) [facility] LDL/HDL Ratio 3 0 - 4 Triglycerides 116 0 - 150 mg/dL Cholesterol 207(A) 0 - 200 mg/dL HDL 65 >=40 mg/dL LDL Cholesterol 119(A) 0 - 100 mg/dL Blood Venous blood specimen / Unknown [facility] Provider LAB BLOOD ORDERABLES Iris l Result * Hepatitis C Screening (04/22/2005) [facility] Hepatitis C Screening Abstracted [facility] Provider HEALTH MAINTENANCE Final Result from Last 3 Months or Most Recently Relevant to Health Maintenance Care Teams Certified Nurse Relationship Specialty Start Date End Date Gabriela Pérez MD [address] [place] [id number] PCP - General Internal Medicine 04/22/21
== END 2024-10-25 14:10 | disposition home or self-care (01) ==
LOC: HO.HMCH 12:54
PROVIDERS: PCP Internal Medicine; Visit Provider Internal Medicine
DX: Z00.00 Encounter for general adult medical examination without abnormal findings (principal); E53.8 Deficiency of other specified B group vitamins; Z72.0 Tobacco use; Z53.20 Procedure and treatment not carried out because of patient's decision for unspecified reasons; M96.1 Postlaminectomy syndrome, not elsewhere classified; R73.01 Impaired fasting glucose; I10 Essential (primary) hypertension; E78.00 Pure hypercholesterolemia, unspecified; N40.0 Benign prostatic hyperplasia without lower urinary tract symptoms; K40.20 Bilateral inguinal hernia, without obstruction or gangrene, not specified as recurrent

== ENCOUNTER → 2024-10-25 12:53 | Outpatient (BNVA) | payer MEDICARE, SELFPAY | PROVIDERS: PCP Internal Medicine; Visit Provider Internal Medicine | DX: Z00.00 Encounter for general adult medical examination without abnormal findings (principal); E53.8 Deficiency of other specified B group vitamins; M96.1 Postlaminectomy syndrome, not elsewhere classified; R73.01 Impaired fasting glucose; I10 Essential (primary) hypertension; E78.00 Pure hypercholesterolemia, unspecified; N40.0 Benign prostatic hyperplasia without lower urinary tract symptoms; K40.20 Bilateral inguinal hernia, without obstruction or gangrene, not specified as recurrent; F17.210 Nicotine dependence, cigarettes, uncomplicated | CPT/HCPCS: 96127; 99397 ==

== ENCOUNTER 2025-01-31 15:30 | Outpatient (AMB) | payer MEDICARE, SELFPAY ==
--- OUTSIDE RECORDS SUMMARY | 2014-12-08 06:00 | XMS_ITS | Continuity of Care Document ---
Author Organization [facility]ules [facility] Address [address] [place] [address] Phone Care Team Providers Care Family Services Manager Name Role Phone Unavailable Unavailable Unavailable Allergies, Adverse Reactions, Alerts Substance Reaction Status Criticality Penicillins Unknown Active No Information Medications Medication Instructions Dosage Effective Dates (start - stop) Status Comments clindamycin 300 mg capsule take 1 capsule by oral route every 8 hours 300 MG - Active hydrocodone 5 mg-acetaminophen 325 mg tablet take 1 tablet by oral route every 6 hours as needed for pain 1.00 tablet - Active metformin 1,000 mg tablet take 1 tablet by oral route 2 times every day with morning and evening meals 1000 MG - Active atorvastatin 40 mg tablet take 1 tablet by oral route every day 40 MG - Active ranitidine 150 mg tablet take 1 tablet b y oral route 2 times every day - Active atenolol 25 mg tablet take 1 tablet by oral route 2 times every day 25 MG - Active fenofibrate 160 mg tablet take 1 tablet by oral route every day 160 MG - Active aspirin 325 mg tablet take 1 tablet by oral route every day 325 MG - Active lisinopril 20 mg tablet take 1 tablet by oral route every day 20 MG - Active hydrochlorothiazide 25 mg tablet take 1 tablet by oral route every day 25 MG - Active nitroglycerin 0.[address] 1 tablet by sublingual route at the 1st sign of attack; may repeat every 5 min until relief; if pain persists after 3 tablets in 15 min, prompt medical attention is recommended 0.4 MG - Active Fish Oil 360 mg-1,200 mg capsule - Active flaxseed oil 1,000 mg capsule - Active Procedures Procedure Date Intraoral-Complete Series (Including Bit ewings) Comprehensive Oral Evaluation-New Or Est ablished P Intraoral-Periapical First Film 015 Limited Oral Evaluation-Problem Focused Advance Directives Directive Yes / No Effective Date File Name No Information Encounters Encounter Description Practice Location Reason(s) For Visit Diagnoses Date Provider Providers Copied on Encounter Jules Sharpe [facility], [address], [place], [place], [id number], tel:[phone] 5 No Information Jules Sharpe [facility], [address], [place], [place], [id number], [place] tel:[phone] examination No Information Family History Family Member Type Diagnosis Age At Onset No Information Payers Payer name Insurance type Covered democrat ID Nelly kerr(s) D [facility] Dental B enefit [facility] [id number] Social History Type Description Quantity Date Captured Comments Alcohol Use Details Unknown Caffeine Use Details Unknown Tobacco Use Status No Information Smoking Status No Information Sex Male Vital Signs Date / Time: Height Weight BMI Pulse Rate Blood Pressure Temperature Respiratory Rate Body Surface Area Head Circumference Head Circ. Percentile Wt./Juan [place]. Percentile BMI percentile Pulse Ox Inhaled Ox 8:58 PM 67 /min 151/95 mm[Hg] Chief Complaint And Reason For Visit No Information Reason For Referral Reason For Referral No Information Plan Of Treatment Date Type Action Status Goal CT-Colonography. Due on due Goal FIT-DNA. Due on due Goal Unhealthy drug use screening . Due on due Goal Zoster vaccine (1st). Due on due Goal FOBT. Due on due Goal Hepatitis C Screening. Due o n due Goal Document SOGI Information. D ue on due Goal Lipid panel. Due on due Goal Td vaccine. Due on 15 due Goal Zoster vaccine. Due on due Goal Colonoscopy. Due on due Goal Tdap. Due on due Goal Influenza vaccine. Due on due Goal APE. Due on due History Of Present Illness Encounter Date Complaint History Of Prese nt Illness No Information Functional Status Date Functional Assessmen t No Information Instructions Date Instruction Additional Infor mation No Information Assessments Type Assessment Date No Information Patient Care Teams Name Effective Dates (start - stop) Status Members No Information
--- OUTSIDE RECORDS SUMMARY | 2025-01-31 15:32 | XMS_ITS | Clinical Summary ---
Author Organization [facility] Address [address] [place] [address] Care Team Providers Care Loft Patternmaker Name Role Phone Gabriela Pérez MD Primary Care Provider [phone] Allergies Active Allergy Reactions Criticality Noted Date [...] 11/05/2020 Heavy alcohol use 11/05/2020 COPD, mild (CMS/[facility] V24, CMS/HCC V28) 03/31/2020 Aneurysm of thoracic aorta ([facility] V24) 017 Hyperlipidemia 04/09/2014 Cervical radicular pain 05/02/2012 Lumbar back pain with radicu lopathy affecting lower extremity 10/29/2009 Overview (06/19/2024): 10/20 decompression L2-4, left Depression 11/07/2008 Essential hypertension, benign 11/01/2006 Immunizations Name Administration Dates Next Due Influenza [...] Date Site/Laterality Comments OTHER SURGICAL HISTORY PROCEDURE: [place] HEMORRHOIDECTOMY XTRNL 2/> COLUMN/GROUP COLONOSCOPY 07/21/2010 PROCEDURE: [...] 10/30/2012 Abdominal Aortic Aneurysm (AAA) Screen 05/31/2022 Falls Risk Assessment 05/31/2022 Social Influencers of Health Screening 05/31/2022 Hypertension/CHF/CAD Annual BMP Blood Test 06/16/2022 04/01/2020 DTaP,Tdap,and Td Vaccines (4 - Td or Tdap) 10/30/2022 10/30/2012, 10/10/2003, 10/10/2003 COVID-19 Vaccine (1 - season) 2024 Depression Screening 07/03/2024 Influenza Vaccine (#1) 2025 0, 05/14/2019, 04/08/2014, Additional history exists Cholesterol Screening [...] Health Maintenance Results * Colonoscopy (01/25/2024) Pathologist [facility] Colonoscopy Abstracted, No Interpretation Anatomical Region Laterality Modality Other [facility] Provider HEALTH MAINTENANCE Final Result * Annual BMP Blood Test (04/01/2020) Pathologist [facility] Annual BMP Blood Test Abstracted [facility] Provider HEALTH MAINTENANCE Final Result * (ABNORMAL) Lipid panel (04/01/2020) [facility] LDL/HDL Ratio 3 0 - 4 Triglycerides 116 0 - 150 mg/dL Cholesterol 207(A) 0 - 200 mg/dL HDL 65 >=40 mg/dL LDL Cholesterol 119(A) 0 - 100 mg/dL Blood Venous blood specimen / Unknown Result [facility] Provider LAB BLOOD ORDERABLES Iris l Result * Hepatitis C Screening (04/22/2005) Pathologist [facility] Hepatitis C Screening Abstracted [facility] Provider HEALTH MAINTENANCE Final Result from Last 3 Months or Most Recently Relevant to Health Maintenance Care Teams Loft Patternmaker Relationship Specialty Start Date End Date Gabriela Pérez MD [address] [place] [address] PCP - General Internal Medicine 04/22/21
--- OUTSIDE RECORDS SUMMARY | 2025-01-31 15:32 | XMS_ITS ---
Author Name [facility] Organization Unknown Care Team Organization Name Specialty Phone Email Start Date End Da te [facility] Termed, PROVIDER Primary Care 05/10/202201/31
[2025-01-31 15:36] VITALS: BP 168/90; PULSE 85; O2SAT 90; BMI 22.3
--- NOTE | 2025-01-31 15:36 | MHC.PC.OV ---
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 Accompanied by: Self / Same As Patient Allergies No Known Allergies (No Known Allergies*) Allergy (Verified 01/31/25 15:37) Medication List - Last Reconciled 01/31/25 by Kenji Melvin MD cyanocobalamin (vitamin B-12) 1,000 mcg PO DAILY hydrocodone-acetaminophen 5-300 mg 1 tab PO BID PRN sildenafil (Viagra) 50 mg PO DAILY PRN trazodone 50 mg PO BEDTIME PRN Tobacco use date assessed: 01/31/25 Fall risk assessment: No Falls in past year Last assessed Fall Risk: 01/31/25 Dental Screening Dental Screen Date: 01/31/25 Did you have a dental visit in the last 12 months?: Yes Did you have a dental problem in the last 6 months where you did not have access to dental care?: No Was dental information given to patient?: Patient has dentist [facility] Medical History (Updated 10/25/24 @ 14:05 by Kenji Melvin MD) Tobacco abuse Hypercholesterolemia Hypertension Surgical History History of tonsillectomy History of hemorrhoidectomy Spinal stenosis Social History Housing: House Alcohol intake: current Alcohol intake frequency: does not drink Comment: once Q 4 months 1 glass Patient Tobacco Use Status: Current everyday Tobacco user Tobacco use type: Cigarette Cigarettes Per Day: 8 Years Smoked: 17 year s old e-Cigarette/Vaping Use: Never Used Second Hand Smoke Exposure: Yes Advance Directives Date on File: 02/23/22 service: No Current occupational status: retired Cognitive needs: Yes (cane) Hearing needs: No Vision needs: Yes Questionnaire PHQ-9 Over the last 2 weeks, how often have you been bothered by any of the following problems? 1. Little interest or pleasure in doing things: not at all 2. Feeling down, depressed, or hopeless: not at all 3. Trouble falling or staying asleep, or sleeping too much: not at all 4. Feeling tired or having little energy: not at all 5. Poor appetite or overeating: not at all 6. Feeling bad about yourself - or that you are a failure or have let yourself or your family down: not at all 7. Trouble concentrating on things, such as reading the newspaper or watching television: not at all 8. Moving or speaking so slowly that other people could have noticed. Or the opposite - being so fidgety or restless that you have been moving around a lot more than usual: not at all 9. Thoughts that you would be better off or of hurting yourself in some way: not at all Total score: 0 Source: Developed by Drs. Ramakrishna Blanc, Ramona Pena, Arvind Saldana and colleagues, with an educational dali from [employer]. Thrive Questionnaire Date Thrive assessed: 01/31/25 I am a: Patient What is your living situation today?: I have a steady place to live Within the past 12 months, did the food you bought not last and you didn't have the money to get more?: Never true Within the past 12 months, did you worry whether your food would run out before you got money to buy more?: Never true Do you have trouble paying for medicines?: No Do you have trouble getting transportation to medical appointments?: No Do you have trouble paying your heating and electricity bill?: No Do you have trouble taking care of your child, family member or friend?: No Do you have trouble with day-to-day activities such as bathing, preparing meals, shopping, managing finances, etc.?: No Are you currently unemployed and looking for a job?: No Are you interested in more education?: No Please select the resources that you would like help with: None Currently or been in a relationship where the following occur: I choose not to answer THRIVE Score: 0 AUDIT C Alcohol Use Questionnaire (AUDIT-C) 1. How often do you have a drink containing alcohol?: Never 3. How often do you have six or more drinks on one occasion?: Never Total Score: 0 CALLY-7 AMB Questionnaire CALLY-7 Date CALLY - 7 assessed: 01/31/25 Feeling nervous, anxious, or on edge: 0 = Not at all Not being able to stop or control worryin = Not at all Worrying too much about different things: 0 = Not at all Trouble relaxin = Not at all Being so restless that it is hard to sit still: 0 = Not at all Becoming easily annoyed or irritable: 0 = Not at all Feeling afraid as if something awful might happen: 0 = Not at all Total CALLY-7 score (0-4 normal; 5-9 mild; 10-14 moderate; 15-21 severe): 0 Source: Developed by Drs. Ramakrishna Blanc, Ramona Pena, Arvind Saldana and colleagues, with an educational dali from [employer]. CALLY-7 Assessment Billing CALLY-7 Assessment Tool: CALLY-7 Assessment 58366 Physical exam (Primary Care) Vital Signs: Last Vital Signs Pulse 85 01/31/25 15:36 BP 168/90 H 01/31/25 15:36 Pulse Ox 90 L 01/31/25 15:36 Oxygen Delivery Method Room Air 01/31/25 15:36 BMI result Body Mass Index 22.3 Tobacco/Smoking Status: Tobacco use Status Tobacco use date assessed 01/31/25 01/31/25 15:39 Patient Tobacco Use Status Current everyday Tobacco 01/31/25 15:39 Tobacco use type Cigarette 01/31/25 15:39 e-Cigarette/Vaping Use Never Used 01/31/25 15:39 PHQ-9: PHQ-9 Score PHQ-9: Total score 0 01/31/25 16:43 Thrive Assessment: Date of Thrive Assessment Date Thrive assessed 01/31/25 01/31/25 15:39 Currently or been in a relationship where the following occur: I choose not to answer Const General: alert; No acute distress Eyes Conjunctivae: conjunctivae normal Resp Auscultation: clear to auscultation bilaterally Cardio Rate: regular rate Rhythm: regular rhythm GI Inspection: Yes normal to inspection Extrem General: Yes normal to inspection and No edema Coding Level of Care Code Est Pt Level 4 (32725) Diagnoses Primary hypertension I10 Hypertension type: primary hypertension Hypercholesterolemia E78.00 Impaired fasting blood sugar R73.01 Spinal stenosis M48.00 Tobacco abuse Z72.0 Additional Codes CALLY-7 Assessment Billing - CALLY-7 Assessment Tool: CALLY-7 Assessment 63012 ([id number]) Assessment & Plan Assessment & Plan (1) Hypertension: Code(s): I10 - Essential (primary) hypertension Category: Medical Qualifiers: Hypertension type: primary hypertension Qualified Code(s): I10 - Essential (primary) hypertension Plan: PAtient states BP has been good at home and so has not been taking the medication (2) Hypercholesterolemia: Code(s): E78.00 - Pure hypercholesterolemia, unspecified Category: Medical Plan: Avoid fried foods, chicken skin, eggs, butter margarine, pastries and meat. Be it pork or beef they have a lot of cholesterol (3) Impaired fasting blood sugar: Code(s): R73.01 - Impaired fasting glucose Category: Medical Plan: Decrease the amount of carbohydrate intake, pasta, bread, rice and potatoes are all sugar and that is aside from all the sweet stuff, remember that fruits are good but they are Sweet also. (4) Spinal stenosis: Comment: Lumbar x 2 and cervical x 1 Code(s): M48.00 - Spinal stenosis, site unspecified Category: Surgical Plan: Narcotic pain meds: Is being prescribed with the understanding that these medications are potentially addictive and should be used only when absolutely necessary and must always be secured. Any remaining pills should be safely disposed off appropriately. Patient is advised that narcotics can impaired judgment and one should not drive or operate heavy machinery while taking these medications. Never share these medications with anybody and do not leave them unattended. They will not be replaced under any circumstances. (5) Tobacco abuse: Comment: still smoking! (04/2023) declined lung cancer screening Code(s): Z72.0 - Tobacco use Category: Medical Plan: Patient is strongly advised to stop smoking! but not ready yet Plan History of Present Illness The patient is a 74-year-old male presenting for a follow-up visit. The patient has a history of spinal stenosis, managed with narcotic pain medication, and hypertension, for which he was prescribed lisinopril but has not been taking it regularly. His blood pressure was 136/80 mmHg when checked at home, but he does not monitor it consistently. He has hypercholesterolemia and impaired glucose tolerance, with the last blood work done in May 2024. He is a smoker and has benign prostatic hyperplasia (BPH). Preventative care measures discussed include the shingles vaccination, which the patient received three weeks ago, and the need for a colonoscopy, which he has not yet undergone. Health Maintenance - Shingles vaccination received three weeks ago - Colonoscopy recommended but not yet performed Social History - Tobacco use: Patient is a smoker Review of Systems - Cardiovascular: Reports blood pressure of 136/80 mmHg when checked at home. Denies consistent monitoring. Physical Exam Results - Labs: Last blood work done in May 2024 Plan The patient is advised to monitor his blood pressure regularly at home and report any consistently high readings. He is to discontinue lisinopril as he is not taking it regularly, but should keep an eye on his blood pressure. A request form for blood tests will be provided to be completed in three months, including fasting glucose and cholesterol levels, as well as kidney function monitoring. The patient is reminded of the importance of completing the shingles vaccination series and is encouraged to consider a colonoscopy for preventative care. Patient was informed and verbally consented to the use of an ambient scribe for clinic note documentation during this visit. Discussion Notes I discussed with the patient the importance of monitoring his blood pressure regularly and the potential risks of uncontrolled hypertension. We agreed to discontinue lisinopril since he is not taking it consistently, but emphasized the need to keep track of his blood pressure readings. I provided a request form for blood tests to be done in three months, including fasting glucose, cholesterol, and kidney function tests. We also discussed the shingles vaccination, which he has started, and the recommendation for a colonoscopy, which he has not yet completed. Patient Instructions - Monitor blood pressure regularly at home and report any high readings. - Discontinue lisinopril but keep track of blood pressure. - Complete blood tests in three months, including fasting glucose and cholesterol. - Consider completing the shingles vaccination series and scheduling a colonoscopy. Orders: Orders Free T4 (Free Thyroxine) 3 Months R73.01 - Impaired fasting glucose Comprehensive Met. Panel 3 Months R73.01 - Impaired fasting glucose Complete Blood Count Auto Diff 3 Months R73.01 - Impaired fasting glucose Hemoglobin A1c 3 Months R73.01 - Impaired fasting glucose Lipid Panel 3 Months E78.00 - Pure hypercholesterolemia, unspecified, R73.01 - Impaired fasting glucose Thyroid Stimulating Hormone 3 Months R73.01 - Impaired fasting glucose Vitamin B12 and Folate 3 Months R73.01 - Impaired fasting glucose
== END 2025-01-31 16:47 | disposition home or self-care (01) ==
LOC: HO.HMCH 15:30
PROVIDERS: PCP Internal Medicine; Visit Provider Internal Medicine
DX: I10 Essential (primary) hypertension (principal); E78.00 Pure hypercholesterolemia, unspecified; R73.01 Impaired fasting glucose; M48.00 Spinal stenosis, site unspecified; Z72.0 Tobacco use

== ENCOUNTER → 2025-01-31 15:30 | Outpatient (BNVA) | payer MEDICARE, SELFPAY | PROVIDERS: PCP Internal Medicine; Visit Provider Internal Medicine | DX: I10 Essential (primary) hypertension (principal); E78.00 Pure hypercholesterolemia, unspecified; R73.01 Impaired fasting glucose; M48.061 Spinal stenosis, lumbar region without neurogenic claudication; M48.02 Spinal stenosis, cervical region; N40.0 Benign prostatic hyperplasia without lower urinary tract symptoms; Z72.0 Tobacco use; Z13.39 Encounter for screening examination for other mental health and behavioral disorders; Z13.30 Encounter for screening examination for mental health and behavioral disorders, unspecified | CPT/HCPCS: 96127; 99212 ==

== ENCOUNTER 2025-05-13 09:04 | Outpatient (REF) | payer MEDICARE, SELFPAY ==
[2025-05-13 09:15] LABS: MANUAL DIFF FLAG NO
[2025-05-13 09:40] LABS: Hematocrit 48.2 % (42.0-52.0); Hemoglobin 17.2 g/dl (14.0-18.0); Imm Gran Abs Auto 0.02 X10*3/uL (0.00-0.03); Imm Gran Pct Auto 0.3 % (0.0-0.4); Lymphocytes Absolute Auto 1.3 X10*3/uL (1.2-4.9); Mean Corpuscular HGB Conc 35.7 g/dl (31.0-36.0); Mean Corpuscular Hemoglobin 35.7 pg (27.0-33.0); Mean Corpuscular Volume 100.0 fL (80.0-98.0); NRBC Abs Auto 0.000 X10*3/uL (0.0-0.012); NRBC Pct Auto 0.0 /100WBC (0.0-0.2); Platelet Count 172 X10*3/uL (160-400); Red Blood Count 4.82 X10*6/uL (4.60-5.80); White Blood Count 6.1 X10*3/uL (4.8-10.8)
--- OUTSIDE RECORDS SUMMARY | 2025-05-13 09:44 | XMS_ITS | Clinical Summary ---
Author Organization [facility] Address [address] [place] [address] Care Team Providers Care Senior Packaging Engineer Name Role Phone Gabriela Pérez MD Primary Care Provider [phone] Allergies Active Allergy Reactions Criticality Noted Date [...] 11/05/2020 Heavy alcohol use 11/05/2020 COPD, mild (CMS/[facility] V24, CMS/HCC V28) 03/31/2020 Aneurysm of thoracic aorta ([facility] V24) 017 Hyperlipidemia 04/09/2014 Cervical radicular pain 05/02/2012 Lumbar back pain with radicu lopathy affecting lower extremity 10/29/2009 Overview (06/19/2024): 10/20 decompression L2-4, left Depression 11/07/2008 Essential hypertension, benign 11/01/2006 Immunizations Immunization Administration Dates Next Due Influenza trivalent, 0.5mL [...] Date Site/Laterality Comments OTHER SURGICAL HISTORY PROCEDURE: [place] HEMORRHOIDECTOMY XTRNL 2/> COLUMN/GROUP COLONOSCOPY 07/21/2010 PROCEDURE: [...] RSV Immunization Adult Patients (1 - Risk 50-74 years 1-dose series) 2002 Zoster Vaccines (2 of 3) 12/25/2012 10/30/2012 Abdominal Aortic Aneurysm (AAA) Screen 05/31/2022 Falls Risk Assessment 05/31/2022 Social Influencers of Health Screening 05/31/2022 Hypertension/CHF/CAD Annual BMP Blood Test 06/16/2022 04/01/2020 DTaP,Tdap,and Td Vaccines (4 - Td or Tdap) 10/30/2022 10/30/2012, 10/10/2003, 10/10/2003 Depression Screening 07/03/2024 COVID-19 Vaccine (1 - season) 2025 Influenza Vaccine (#1) 2025 0, 05/14/2019, 04/08/2014, [...] Health Maintenance Results * Colonoscopy (01/25/2024) Pathologist [facility] Colonoscopy Abstracted, No Interpretation Anatomical Region Laterality Modality Other [facility] Provider HEALTH MAINTENANCE Final Result * Annual BMP Blood Test (04/01/2020) Pathologist [facility] Annual BMP Blood Test Abstracted [facility] Provider HEALTH MAINTENANCE Final Result * (ABNORMAL) Lipid panel (04/01/2020) [facility] LDL/HDL Ratio 3 0 - 4 Triglycerides 116 0 - 150 mg/dL Cholesterol 207(A) 0 - 200 mg/dL HDL 65 >=40 mg/dL LDL Cholesterol 119(A) 0 - 100 mg/dL Blood Venous blood specimen / Unknown Result [facility] Provider LAB BLOOD ORDERABLES Iris l Result * Hepatitis C Screening (04/22/2005) Pathologist [facility] Hepatitis C Screening Abstracted [facility] Provider HEALTH MAINTENANCE Final Result from Last 3 Months or Most Recently Relevant to Health Maintenance Care Teams Senior Packaging Engineer Relationship Specialty Start Date End Date Gabriela Pérez MD [address] [place] [address] PCP - General Internal Medicine 04/22/21
[2025-05-13 10:07] LABS: Alanine Aminotransferase 31 U/L (0-40); Albumin Level 4.7 g/dL (3.5-5.0); Alkaline Phosphatase 93 U/L (39-117); Anion Gap 13 (12-20); Aspartate Amino Transferase 36 U/L (5-37); Blood Urea Nitrogen 11 mg/dL (9-16); Calcium 9.9 mg/dL (8.4-10.2); Carbon Dioxide 27 mmol/L (22-29); Chloride 101 mmol/L (96-108); Cholesterol 191 mg/dL (<200); Estimated Glomerular Filt Rate > 60; HDL Cholesterol 68 mg/dL (>40); Potassium 4.4 mmol/L (3.3-5.1); Sodium 137 mmol/L (135-145); Total Protein 7.6 g/dL (6.5-8.0); Triglycerides 156 mg/dL (<150)
[2025-05-13 10:26] LABS: Folate 10.4 ng/mL (> or = 4.0); Vitamin B12 560 pg/mL (200-900)
[2025-05-13 10:34] LABS: Free T4 (Free Thyroxine) 0.99 ng/dL (0.71-1.85); Thyroid Stimulating Hormone 1.20 uIU/mL (0.32-4.0)
== END 2025-05-13 09:05 | disposition home or self-care (01) ==
LOC: HO.LAB 09:04
PROVIDERS: PCP Internal Medicine; Visit Provider Internal Medicine
DX: R73.01 Impaired fasting glucose (principal); E78.00 Pure hypercholesterolemia, unspecified
CPT/HCPCS: 36415; 80053; 80061; 82607; 82746; 83036; 84439; 84443; 85025

== ENCOUNTER 2025-06-03 09:07 | Outpatient (AMB) | payer MEDICARE, SELFPAY ==
[2025-06-03 09:28] VITALS: BP 136/62; PULSE 75; O2SAT 97; BMI 23.0
--- NOTE | 2025-06-03 09:28 | MHC.PC.OV ---
Vital Signs 06/03/25 09:28 Height 5 ft 10 in Weight 160 lb BMI 23.0 BP 136/62 Blood Pressure Location Lt brachial Position Sitting Pulse 75 Pulse Source Pulse Oximeter Pulse Oximetry (%) 97 Oxygen Delivery Method Room Air Intake Visit Reasons: CLBP, smoker Allergies No Known Allergies (No Known Allergies*) Allergy (Verified 06/03/25 09:28) Tobacco use date assessed: 01/31/25 Fall risk assessment: No Falls in past year Last assessed Fall Risk: 06/03/25 Dental Screening Dental Screen Date: 01/31/25 HPI HPI Comments History of Present Illness Details History of Present Illness The patient is a 74 year old individual presenting for a follow-up visit for management of chronic conditions and review of laboratory results. The patient's medical history is significant for hypercholesterolemia, lumbar and cervical spinal stenosis requiring narcotic pain medication, hypertension, impaired glucose tolerance, benign prostatic hyperplasia, and bilateral inguinal hernia. The patient is a current smoker and has previously declined lung cancer screening. Regarding colon cancer screening, the patient's last recorded colonoscopy was in 2010, however, the patient reports undergoing a colonoscopy and EGD at [facility] in December of last year for an evaluation of bleeding, with no significant findings reported. Recent lab work from May showed macrocytosis with a normal blood count and platelet count. Electrolytes and renal function were normal, with a blood sugar of 109 and a normal hemoglobin A1c. The lipid panel revealed a triglyceride level of 156 mg/dL, LDL of 92 mg/dL, and HDL of 68 mg/dL. Vitamin B12, folic acid, and thyroid function were all within normal limits. The patient had cataract surgery with a lens implant in one eye and is up to date with eye exams. Vaccination history is current for pneumonia and tetanus, but the patient declines the flu shot. Health Maintenance Colonoscopy was discussed, and the patient clarified that a procedure was done last year with negative results, so the patient is considered up-to-date. Vaccinations were discussed; the patient is current on tetanus and pneumonia but declines the flu and COVID-19 vaccines. Social History - Substance Use: The patient is a current smoker and was strongly advised to quit. - Nutritional Intake: The patient reports drinking soda and was counseled on its high sugar content and advised to switch to alternatives like flavored seltzer water. - Family Status: The patient lives with their . Results - Laboratory results from November 11th: - CBC: Revealed macrocytosis with a normal blood count and platelet count. - Chemistry Panel: Electrolytes and renal function were normal. - Glucose: 109 mg/dL. - Hemoglobin A1c: Normal. - Liver Function Tests: Normal. - Lipid Panel: Triglycerides 156 mg/dL, LDL 92 mg/dL, HDL 68 mg/dL. - Vitamin B12: 560. - Folic Acid: Normal. - Thyroid Function: Normal. [facility] Medical History (Updated 10/25/24 @ 14:05 by Kenji Melvin MD) Tobacco abuse Hypercholesterolemia Hypertension Surgical History History of tonsillectomy History of hemorrhoidectomy Spinal stenosis Social History Housing: House Alcohol intake: current Alcohol intake frequency: does not drink Comment: once Q 4 months 1 glass Patient Tobacco Use Status: Current everyday Tobacco user Tobacco use type: Cigarette Cigarettes Per Day: 8 Years Smoked: 17 year s old Packs per year/per ci.00 e-Cigarette/Vaping Use: Never Used Second Hand Smoke Exposure: Yes Advance Directives Date on File: 02/23/22 service: No Current occupational status: retired Cognitive needs: Yes (cane) Hearing needs: No Vision needs: Yes Questionnaire PHQ-9 Over the last 2 weeks, how often have you been bothered by any of the following problems? 1. Little interest or pleasure in doing things: not at all 2. Feeling down, depressed, or hopeless: not at all 3. Trouble falling or staying asleep, or sleeping too much: not at all 4. Feeling tired or having little energy: not at all 5. Poor appetite or overeating: not at all 6. Feeling bad about yourself - or that you are a failure or have let yourself or your family down: not at all 7. Trouble concentrating on things, such as reading the newspaper or watching television: not at all 8. Moving or speaking so slowly that other people could have noticed. Or the opposite - being so fidgety or restless that you have been moving around a lot more than usual: not at all 9. Thoughts that you would be better off or of hurting yourself in some way: not at all Total score: 0 Depression Screening Interpretation: Negative Depression Screening Done: Yes Source: Developed by Drs. Ramakrishna Blanc, Ramona Pena, Arvind Saldana and colleagues, with an educational dali from [employer]. Thrive Questionnaire Date Thrive assessed: 01/31/25 I am a: Patient What is your living situation today?: I have a steady place to live Within the past 12 months, did the food you bought not last and you didn't have the money to get more?: Never true Within the past 12 months, did you worry whether your food would run out before you got money to buy more?: Never true Do you have trouble paying for medicines?: No Do you have trouble getting transportation to medical appointments?: No Do you have trouble paying your heating and electricity bill?: No Do you have trouble taking care of your child, family member or friend?: No Do you have trouble with day-to-day activities such as bathing, preparing meals, shopping, managing finances, etc.?: No Are you currently unemployed and looking for a job?: No Are you interested in more education?: No Please select the resources that you would like help with: None Currently or been in a relationship where the following occur: I choose not to answer THRIVE Score: 0 AUDIT C Alcohol Use Questionnaire (AUDIT-C) 1. How often do you have a drink containing alcohol?: Never 3. How often do you have six or more drinks on one occasion?: Never Total Score: 0 CALLY-7 AMB Questionnaire CALLY-7 Date CALLY - 7 assessed: 01/31/25 Source: Developed by Drs. Ramakrishna Blanc, Ramona Pena, Arvind Saldana and colleagues, with an educational dali from [employer]. Review of Systems Narrative Review of Systems - Allergic/Immunologic: Reports sneezing and feeling stuffy at the time of a recent blood draw. - Neurological: Reports a headache at the time of a recent blood draw. - Musculoskeletal: Reports ongoing issues with spinal stenosis and sciatica. - Eyes: Reports good vision following cataract surgery. - Respiratory: Denies breathing problems or need for inhalers. - Gastrointestinal: Reports daily bowel movements; denies constipation. - Genitourinary: Denies urinary problems. Physical exam (Primary Care) Vital Signs: Last Vital Signs Pulse 75 06/03/25 09:28 BP 136/62 06/03/25 09:28 Pulse Ox 97 06/03/25 09:28 Oxygen Delivery Method Room Air 06/03/25 09:28 BMI result Body Mass Index 23.0 Tobacco/Smoking Status: Tobacco use Status Tobacco use date assessed 01/31/25 06/03/25 09:29 Patient Tobacco Use Status Current everyday Tobacco 06/03/25 09:29 Tobacco use type Cigarette 06/03/25 09:29 e-Cigarette/Vaping Use Never Used 06/03/25 09:29 PHQ-9: PHQ-9 Score PHQ-9: Total score 0 06/03/25 09:55 Depression Screening Interpretation: Negative Thrive Assessment: Date of Thrive Assessment Date Thrive assessed 01/31/25 06/03/25 09:29 Currently or been in a relationship where the following occur: I choose not to answer Narrative Physical Exam Const General: alert; No acute distress Eyes Conjunctivae: conjunctivae normal Resp Auscultation: clear to auscultation bilaterally Cardio Rate: regular rate Rhythm: regular rhythm GI Inspection: Yes normal to inspection Extrem General: Yes normal to inspection and No edema Coding Level of Care Code Complex visit Add On G2211 Diagnoses Primary hypertension I10 Hypertension type: primary hypertension Hypercholesterolemia E78.00 Impaired fasting blood sugar R73.01 Colon cancer screening Z12.11 BPH (benign prostatic hyperplasia) N40.0 Spinal stenosis M48.00 Tobacco abuse Z72.0 Assessment & Plan Assessment & Plan (1) Hypertension: Code(s): I10 - Essential (primary) hypertension Category: Medical Qualifiers: Hypertension type: primary hypertension Qualified Code(s): I10 - Essential (primary) hypertension Plan: Continue with blood pressure medication. Decrease salt intake and exercise on lisinopril 20 mg once a day (2) Hypercholesterolemia: Code(s): E78.00 - Pure hypercholesterolemia, unspecified Category: Medical Plan: Avoid fried foods, chicken skin, eggs, butter margarine, pastries and meat. Be it pork or beef they have a lot of cholesterol LDL goal of less than 130 and triglyceride of less than 150 (3) Impaired fasting blood sugar: Code(s): R73.01 - Impaired fasting glucose Category: Medical Plan: Decrease the amount of carbohydrate intake, pasta, bread, rice and potatoes are all sugar and that is aside from all the sweet stuff, remember that fruits are good but they are Sweet also. Patient has a normal hemoglobin A1c (4) Colon cancer screening: Comment: 2010 viridiana Velasquez Code(s): Z12.11 - Encounter for screening for malignant neoplasm of colon Category: Medical Plan: Again discussed with the patient regarding colonoscopy (5) BPH (benign prostatic hyperplasia): Code(s): N40.0 - Benign prostatic hyperplasia without lower urinary tract symptoms Category: Medical Plan: Stable (6) Spinal stenosis: Comment: Lumbar x 2 and cervical x 1 Code(s): M48.00 - Spinal stenosis, site unspecified Category: Surgical Plan: Narcotic pain meds: Is being prescribed with the understanding that these medications are potentially addictive and should be used only when absolutely necessary and must always be secured. Any remaining pills should be safely disposed off appropriately. Patient is advised that narcotics can impaired judgment and one should not drive or operate heavy machinery while taking these medications. Never share these medications with anybody and do not leave them unattended. They will not be replaced under any circumstances. (7) Tobacco abuse: Comment: still smoking! (04/2023) declined lung cancer screening Code(s): Z72.0 - Tobacco use Category: Medical Plan: Patient is strongly advised to stop smoking! Plan Plan Patient was informed and verbally consented to the use of an ambient scribe for clinic note documentation during this visit. 1. Hypertension Plan is to continue lisinopril 20 mg once a day. A prescription will be refilled. 2. Hypercholesterolemia The lipid panel showed an LDL goal of less than 130 and a triglyceride goal of less than 150. Recent labs show an LDL of 92, which is excellent, and triglycerides of 156, which is only mildly elevated. No medication changes are warranted at this time. 3. Impaired Glucose Tolerance Recent labs showed a blood sugar of 109, but the patient has a normal hemoglobin A1c. The morning hyperglycemia is likely due to dietary choices, such as consuming sugary sodas or chocolate at night. Dietary counseling was provided, with a recommendation to reduce soda consumption. 4. Macrocytosis The patient's blood work showed macrocytosis (large red blood cells) but the patient is not anemic and has a normal B12 level. The plan is to continue monitoring this finding. 5. Tobacco Use Disorder The patient is a current smoker. The patient was strongly advised to stop smoking. Discussion Notes I reviewed the recent lab results with the patient. I explained that the blood count is normal and the patient is not anemic, but the red blood cells are slightly large (macrocytosis). I informed the patient that since the B12 level is good, we will just continue to monitor this. I also noted an indication of allergies in the blood work, which the patient confirmed with symptoms of sneezing. I reassured the patient that electrolytes and kidney function are normal. We discussed that the slightly elevated morning blood sugar of 109 is likely related to diet, as the patient's overall A1c is normal. I reviewed the cholesterol panel, explaining that while triglycerides are mildly elevated at 156, the LDL and HDL cholesterol levels are excellent, and no treatment is needed for this at this time. I strongly advised the patient on the importance of smoking cessation. We confirmed that the patient had a colonoscopy last year and is up to date with this screening. The patient declined the flu and COVID-19 vaccines but confirmed being up to date on tetanus and pneumonia shots. I will send a prescription refill for the patient's lisinopril. Patient Instructions - Continue taking your lisinopril 20 mg once a day for blood pressure. - You are strongly encouraged to stop smoking. - Your lab work looks good overall. - Try to avoid drinking soda and other sugary drinks to help with your blood sugar. - Your screening for colon cancer is up to date. - Make sure you continue to drink enough water.
--- OUTSIDE RECORDS SUMMARY | 2025-06-03 09:35 | XMS_ITS | Clinical Summary ---
Author Organization [facility] Address [address] [place] [address] Care Team Providers Care Intelligence Intern Name Role Phone Gabriela Pérez MD Primary Care Provider [phone] Allergies Active Allergy Reactions Criticality Noted Date [...] 11/05/2020 Heavy alcohol use 11/05/2020 COPD, mild (CMS/[facility] V24, CMS/HCC V28) 03/31/2020 Aneurysm of thoracic aorta ([facility] V24) 017 Hyperlipidemia 04/09/2014 Cervical radicular [...] Date Site/Laterality Comments OTHER SURGICAL HISTORY PROCEDURE: [place] HEMORRHOIDECTOMY XTRNL 2/> COLUMN/GROUP COLONOSCOPY 07/21/2010 PROCEDURE: [...] Health Maintenance Results * Colonoscopy (01/25/2024) Pathologist [facility] Colonoscopy Abstracted, No Interpretation Anatomical Region Laterality Modality Other [facility] Provider HEALTH MAINTENANCE Final Result * Annual BMP Blood Test (04/01/2020) Pathologist [facility] Annual BMP Blood Test Abstracted [facility] Provider HEALTH MAINTENANCE Final Result * (ABNORMAL) Lipid panel (04/01/2020) [facility] LDL/HDL Ratio 3 0 - 4 Triglycerides 116 0 - 150 mg/dL Cholesterol 207(A) 0 - 200 mg/dL HDL 65 >=40 mg/dL LDL Cholesterol 119(A) 0 - 100 mg/dL Blood Venous blood specimen / Unknown Result [facility] Provider LAB BLOOD ORDERABLES Iris l Result * Hepatitis C Screening (04/22/2005) Pathologist [facility] Hepatitis C Screening Abstracted [facility] Provider HEALTH MAINTENANCE Final Result from Last 3 Months or Most Recently Relevant to Health Maintenance Care Teams Intelligence Intern Relationship Specialty Start Date End Date Gabriela Pérez MD [address] [place] [id number] PCP - General Internal Medicine 04/22/21
== END 2025-06-03 10:04 | disposition home or self-care (01) ==
LOC: HO.HMCH 09:08
PROVIDERS: PCP Internal Medicine; Visit Provider Internal Medicine
DX: I10 Essential (primary) hypertension (principal); E78.00 Pure hypercholesterolemia, unspecified; R73.01 Impaired fasting glucose; Z12.11 Encounter for screening for malignant neoplasm of colon; N40.0 Benign prostatic hyperplasia without lower urinary tract symptoms; M48.00 Spinal stenosis, site unspecified; Z72.0 Tobacco use

== ENCOUNTER → 2025-06-03 09:07 | Outpatient (BNVA) | payer MEDICARE, SELFPAY | PROVIDERS: PCP Internal Medicine; Visit Provider Internal Medicine | DX: M48.061 Spinal stenosis, lumbar region without neurogenic claudication (principal); E78.00 Pure hypercholesterolemia, unspecified; M48.02 Spinal stenosis, cervical region | CPT/HCPCS: 96127; 99212 ==